=== PATIENT | female | born 1945 | race Caucasian/White ===

== ENCOUNTER 2017-09-10 13:15 | Inpatient (IN) | payer OTHER ==
[~2017-09-10] VITALS: Ht 149.9 cm; Wt 71.0 kg
[~2017-09-10 13:15] MED LIST: ASPIRIN81 M4 PO; CEPHALEXIN500 MG PO; ELIQUIS5 MG PO; HYDROCORTISONE V0.2% TOP; LEVOTHYROXIN0.125 M1 PO; LEVOTHYROXINE125 MCG PO; METHOTREXATE25 MG/M2 SC; MONTELUKAST SOD10 M1 PO; MONTELUKAST SOD10 MG PO; MYCOPHENOLATE500 M1 PO; PREDNISONE 20MG20 MG PO; VITAMIN D50000 IU PO
--- NOTE | 2017-09-10 14:39 | ED GENERAL ADULT ---
History of Present Illness General Chief Complaint: Lower Extremity Injury Stated Complaint: BIBA RT KNEE PAIN S/P FALL Source: patient Exam Limitations: poor historian Vital Signs & Intake/Output Vital Signs & Intake/Output Vital Signs Date Time Temp Pulse Resp B/P B/P Pulse O2 O2 Flow FiO2 Mean Ox Delivery Rate 09/10 1942 99.4 70 20 126/70 97 Room Air 09/10 1839 98.7 72 20 135/67 96 Room Air 09/10 1626 98.1 71 18 139/71 97 Room Air 09/10 1406 98.9 75 18 139/81 98 Room Air Allergies Coded Allergies: lactose (Mild, GI DISTRESS 09/10/17) Reconcile Medications Albuterol Sulfate (Proair Hfa) 90 MCG HFA.AER.AD 2 PUF INH AD PRN RESP. ( Reported) Aspirin (Aspirin*) 81 MG TAB.CHEW 1 TAB PO DAILY HEART HEALTH (Reported) Cholecalciferol (Vitamin D3) (Vitamin D) (Unknown Strength) CAPSULE (Unknown Dose) PO DAILY SUPPLEMENT (Reported) Clobetasol Propionate 0.05 % CREAM..G. 1 IVÁN TOP DAILY SKIN (Reported) apply to affected area(s) Levothyroxine Sodium 125 MCG TABLET 1 TAB PO DAILY THYROID HEALTH (Reported) Montelukast Sodium 10 MG TABLET 1 TAB PO DAILY RESP (Reported) Mycophenolate Mofetil (Cellcept) 500 MG TABLET 1 TAB PO TID MORPHIA (Reported ) Triage Note: 71F BIBA MISSED A STEP AND TWISTED/HYPEREXTENDED R KNEE WITH PAIN TO LATERAL SIDE. DENIES PAIN WITH FLEXION AND MOVEMENT TO HIPS, L KNEE, ANKLES FEEET, WRISTS, ELBOWS, OR SHOULDERS. -HEADSTRIKE -LOC Triage Nurses Notes Reviewed? yes Onset: Abrupt Duration: hour(s): Timing: recent history Severity: severe HPI: 09/10/17 71-year-old female presents to the emergency department for severe right knee pain. She status post slip and fall with strains her right knee. She denies other injuries or complaints. Past History Travel History Traveled to [place] past 21 day No Medical History Any Pertinent Medical History? 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 No Review of Systems Review of Systems Constitutional: Denies: fever. EENTM: Denies: visual changes. Respiratory: Denies: short of breath. Cardiovascular: Denies: chest pain. GI: Denies: abdominal pain. Genitourinary: Reports: no symptoms. Musculoskeletal: Reports: see HPI. Skin: Reports: no symptoms. Neurological/Psychological: Reports: no symptoms. Hematologic/Endocrine: Reports: no symptoms. Physical Exam Physical Exam General Appearance: well developed/nourished, alert, awake, anxious, moderate distress Head: atraumatic, normal appearance Eyes: Bilateral: normal appearance, PERRL, EOMI. Ears, Nose, Throat: normal pharynx, normal ENT inspection Neck: normal inspection, supple, full range of motion Respiratory: normal breath sounds, chest non-tender, no respiratory distress Cardiovascular: regular rate/rhythm Peripheral Pulses: 4+ radial (R), 4+ radial (L) Gastrointestinal: non-tender Extremities: swelling, tenderness Neurologic/Psych: no motor/sensory deficits, awake, alert, oriented x 3 Skin: intact, normal color Comments: The patient had severe right sided inferior and lateral knee pain. Exquisite tenderness on any range of motion. No ligament instability. She was placed in a right knee immobilizer. Right dorsalis pedis pulse was bounding. She had good capillary refill to the toes of the right foot. X-ray showed right tibial plateau fracture. She was admitted to medicine with the plan for operative care on Wednesday. Core Measures ACS in differential dx? No CVA/TIA Diagnosis: No Sepsis Present: No Sepsis Focused Exam Completed? No Progress Differential Diagnoses I considered the following diagnoses in my evaluation of the patient: [Fracture, dislocation, popliteal artery dissection, ligament injury, other occult injuries , DVT,] Plan of Care: Orders Procedure Date/time Status Heart Healthy Diet 09/11 B Active CBC WITHOUT DIFFERENTIAL 09/11 599 Active BASIC ELECTROLYTES PLUS BUN&CR 05/19 0600 Active Turn and Reposition 09/10 2013 Active Skin Integrity Protocol 09/10 2013 Active Device(s) 09/10 194 Active Weight 09/10 192 Active Vital Signs 09/10 1922 Active Teach/Educate 09/10 1922 Active Pain Treatment and Response 09/10 1922 Active Nutritional Intake, Monitor 09/10 1922 Active Isolation 09/10 1922 Active Intake & Output 09/10 1922 Active Patient Care Conference 09/10 1922 Active Activity/Ambulation 09/10 1922 Active Pathway - chart 09/10 1704 Active House Staff 09/10 1704 Active Patient Data 09/10 1704 Active Code Status 09/10 1704 Active Patient Data 09/10 1702 Active ED Holding Orders 09/10 1656 Active Admit to inpatient 09/10 1656 Active Vital Signs 09/10 1656 Active Code Status 09/10 1656 Complete PROTHROMBIN TIME 09/10 1649 Complete COMPREHENSIVE METABOLIC PANEL 09/10 1649 Complete CBC WITHOUT DIFFERENTIAL 09/10 1649 Complete EKG 09/10 1649 Active Intake & Output 09/10 1407 Active VTE Mechanical Prophylaxis 09/10 UNK Active Current Medications Sig/Gila Start time Last Medication Dose Stop Time Status Admin Montelukast Sodium 10 MG AT BEDTIME 09/11 2100 AC (Singulair) Aspirin 81 MG DAILY 09/11 0900 AC (Aspirin) Levothyroxine Sodium 0.125 MG DAILY AC 09/11 0700 AC (Synthroid) Mycophenolate Mofetil 500 MG TID 09/10 2100 AC (CellCept) Acetaminophen 650 MG Q4P PRN 09/10 181 AC (Tylenol) Morphine Sulfate 1 MG Q6P PRN 09/10 181 AC (MORPHINE SULFATE) Oxycodone/ 2 TAB Q4P PRN 09/10 1815 AC Acetaminophen (Percocet) Pantoprazole Sodium 40 MG DAILY 09/10 180 AC (Protonix) Enoxaparin Sodium 40 MG DAILY 09/10 1704 AC 09/10 (Lovenox) 1823 Laboratory Tests 09/10/17 1800: Anion Gap 12, Estimated GFR > 60, BUN/Creatinine Ratio 30.0 H, Glucose 84, Calcium 10.6 H, Total Bilirubin 1.1, AST 29, ALT 30, Alkaline Phosphatase 123, Total Protein 7.1, Albumin 4.4, Globulin 2.7, Albumin/Globulin Ratio 1.6, PT 11.0, INR 1.01, CBC w Diff MAN DIFF ORDERED, RBC 4.97, MCV 82.3, MCH 27.2, MCHC 33.1, RDW 13.4, MPV 8.8, Gran % 86.3 H, Lymphocytes % 8.9 L, Monocytes % 4.3, Eosinophils % 0.4, Basophils % 0.1, Absolute Granulocytes 5.9, Segmented Neutrophils 80 H, Band Neutrophils 6 H, Absolute Lymphocytes 0.6 L, Lymphocytes 10 L, Monocytes 3, Absolute Monocytes 0.3, Eosinophils 1, Absolute Eosinophils 0, Absolute Basophils 0, Platelet Estimate ADEQUATE, Normocytic RBCs VERIFIED, Normochromic RBCs VERIFIED Initial ED EKG: PENDING Departure Departure Disposition: HOME OR SELF CARE Condition: Stable Clinical Impression Primary Impression: Tibial plateau fracture, right Referrals: Patient Has No Primary Care Dr Departure Forms: Customer Survey General Discharge Information Admission Note Spoke With: Aidan AZAR,Dillon Documentation of Exam: Documentation of any treatments & extenuating circumstances including Concerns Regarding Discharge (functional status, medication knowledge or non-compliance, living conditions, etc.) that warrant an admission rather than observation: [ Patient needs admission for IV pain control, she is unable to walk, surgical intervention.] Critical Care Note Critical Care Note Critical Care Time: 30-74 min
--- NOTE | 2017-09-10 15:42 | RADIOLOGY REPORT ---
EXAMINATION: XR KNEE, RIGHT CLINICAL INFORMATION: Pain after a fall COMPARISON: None TECHNIQUE: Four views of the right knee. FINDINGS: There is a lateral tibial plateau fracture with prominent sagittally oriented component extending from the tibial spine to the lateral tibial metaphysis. There is 4-5 mm of articular surface depression anteriorly. Large lipohemarthrosis. IMPRESSION: Depressed lateral tibial plateau fracture with large lipohemarthrosis.
--- NOTE | 2017-09-10 15:43 | RADIOLOGY REPORT ---
EXAMINATION: XR HIP, RIGHT CLINICAL INFORMATION: Right hip pain after a fall COMPARISON: None TECHNIQUE: Two views of the right hip. FINDINGS: Normal alignment. No fracture. Mild right hip osteoarthritis. No focal osseous lesion. IMPRESSION: No fracture.
--- NOTE | 2017-09-10 17:07 | History & Physical ---
General Information and HPI Allergies/Medications Allergies: Coded Allergies: lactose (Mild, GI DISTRESS 09/10/17) Home Med list Aspirin (Aspirin*) 81 MG TAB.CHEW 1 TAB PO DAILY HEART HEALTH (Reported) Levothyroxine Sodium 125 MCG TABLET 1 TAB PO DAILY THYROID HEALTH (Reported) Montelukast Sodium 10 MG TABLET 1 TAB PO DAILY BREATHING PROBLEMS (Reported) Mycophenolate Mofetil 500 MG TABLET 2 TAB PO BID ANTIBIOTIC, INFECTION ( Reported) Past History Travel History Traveled to [place] past 21 day No Medical History Neurological: NONE EENT: MORPHIA SCLERODERMA Cardiovascular: AFIB, hyperlipidemia Respiratory: asthma Gastrointestinal: NONE Hepatic: NONE Renal: NONE Musculoskeletal: NONE Psychiatric: NONE Endocrine: hypothyroidism Blood Disorders: NONE 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 spouse Services at Home: None Primary Language: [facility] Living Will? no Power of Sole Splitter/HCP? yes Name of POA/HCP: MARIE Functional Ability ADLs Independent: dressing, eating, toileting, bathing. Ambulation: independent IADLs Independent: shopping, housework, finances, food prep, telephone, transportation , medication admin. Exam & Diagnostic Data Last 24 Hrs of Vital Signs/I&O Vital Signs Date Time Temp Pulse Resp B/P B/P Pulse O2 O2 Flow FiO2 Mean Ox Delivery Rate 09/10 1626 98.1 71 18 139/71 97 Room Air 09/10 1406 98.9 75 18 139/81 98 Room Air Intake & Output 09/10 1600 09/10 0800 09/10 0000 Intake Total Output Total Balance Patient 123 lb Weight Diagnostic Data Other Results XR HIP, RIGHT FINDINGS: Normal alignment. No fracture. Mild right hip osteoarthritis. No focal osseous lesion. IMPRESSION: No fracture. XR KNEE, RIGHT FINDINGS: There is a lateral tibial plateau fracture with prominent sagittally oriented component extending from the tibial spine to the lateral tibial metaphysis. There is 4-5 mm of articular surface depression anteriorly. Large lipohemarthrosis. IMPRESSION: Depressed lateral tibial plateau fracture with large lipohemarthrosis. Assessment/Plan As Ranked By This Provider Problem List: 1. Tibial plateau fracture, right Core Measures/Misc (01/10) Acute Coronary Syndrome ACS Diagnosis: No Congestive Heart Failure Congestive Heart Failure Diagnosis No Cerebrovascular Accident CVA/TIA Diagnosis: No VTE (View Protocol) VTE Risk Factors Age>40 Sepsis (View protocol) Sepsis Present: No CVA/TIA Diagnosis: No VTE (View Protocol) VTE Risk Factors Age>40 Sepsis (View protocol) Sepsis Present: No
--- NOTE | 2017-09-10 17:09 | History & Physical ---
Luis Carlos Calvo 09/10/17 1708: General Information and HPI History of Present Illness: Mr. Jara is a Ukrainian speaking 68-year-old woman with past medical history of AFIB, morphea scleroderma, hyperlipidemia, asthma and hypothyroidism who presents to the ED with right knee pain after a fall. Son at bedside. Patient reports this morning she was walking down garage steps that does not have any railing while carrying a bag in her hand. As she was going down the steps she missed a step and fell towards her right side. She yelled out for her son who was in the house with her but a neighbor was first to respond who found her on the ground without LOC. She stayed on the ground until the paramedics came. She performs her own ADLs and is able to walk up and down a flight of steps without SOB. She denies lightheadedness, history of falls, CP, SOB, palpitations, nausea, vomiting, urinary or bowel symptoms. In the ED the patient remained stable, Dr. Miller was contacted who reports her surgery will be scheduled for Wednesday due to a special hardware that needs to be ordered. Allergies/Medications Allergies: Coded Allergies: lactose (Mild, GI DISTRESS 09/10/17) Home Med list Albuterol Sulfate (Proair Hfa) 90 MCG HFA.AER.AD 2 PUF INH AD PRN RESP. ( Reported) Aspirin (Aspirin*) 81 MG TAB.CHEW 1 TAB PO DAILY HEART HEALTH (Reported) Cholecalciferol (Vitamin D3) (Vitamin D) (Unknown Strength) CAPSULE (Unknown Dose) PO DAILY SUPPLEMENT (Reported) Clobetasol Propionate 0.05 % CREAM..G. 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 spouse Services at Home: None Primary Language: portguese Living Will? 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 Ambulation: independent IADLs Independent: shopping, housework, finances, food prep, telephone, transportation , medication admin. Review of Systems Review of Systems Constitutional: Reports: see HPI. Exam & Diagnostic Data Last 24 Hrs of Vital Signs/I&O Vital Signs Date Time Temp Pulse Resp B/P B/P Pulse O2 O2 Flow FiO2 Mean Ox Delivery Rate 09/10 1626 98.1 71 18 139/71 97 Room Air 09/10 1406 98.9 75 18 139/81 98 Room Air Intake & Output 09/10 1600 09/10 0800 09/10 0000 Intake Total Output Total Balance Patient 123 lb Weight Physical Exam General Appearance Alert, Oriented X3, Cooperative, No Acute Distress Skin Fibrotic lesions throughout body HEENT Atraumatic, PERRLA, EOMI, Mucous Membr. moist/pink Cardiovascular Regular Rate, Normal S1, Normal S2 Lungs Clear to Auscultation, Normal Air Movement Abdomen Normal Bowel Sounds, Soft, No Tenderness Extremities R knee swelling and tenderness. No ecchymoses visualized Last 24 Hrs of Labs/Loki: Laboratory Tests 09/10/17 1800: Sodium Pending, Potassium Pending, Chloride Pending, Carbon Dioxide Pending, Anion Gap Pending, BUN Pending, Creatinine Pending, BUN/Creatinine Ratio Pending , Glucose Pending, Calcium Pending, Total Bilirubin Pending, AST Pending, ALT Pending, Alkaline Phosphatase Pending, Total Protein Pending, Albumin Pending, Globulin Pending, Albumin/Globulin Ratio Pending, PT 11.0, INR 1.01, CBC w Diff MAN DIFF ORDERED, RBC 4.97, MCV 82.3, MCH 27.2, MCHC 33.1, RDW 13.4, MPV 8.8, Gran % 86.3 H, Lymphocytes % 8.9 L, Monocytes % 4.3, Eosinophils % 0.4, Basophils % 0.1, Absolute Granulocytes 5.9, Segmented Neutrophils Pending, Absolute Lymphocytes 0.6 L, Absolute Monocytes 0.3, Absolute Eosinophils 0, Absolute Basophils 0 Diagnostic Data EKG Results SR, HR 74, QTc 426 Other Results XR HIP, RIGHT FINDINGS: Normal alignment. No fracture. Mild right hip osteoarthritis. No focal osseous lesion. IMPRESSION: No fracture. XR KNEE, RIGHT FINDINGS: There is a lateral tibial plateau fracture with prominent sagittally oriented component extending from the tibial spine to the lateral tibial metaphysis. There is 4-5 mm of articular surface depression anteriorly. Large lipohemarthrosis. IMPRESSION: Depressed lateral tibial plateau fracture with large lipohemarthrosis. Assessment/Plan Assessment: Mr. Jara is a Ukrainian speaking 68-year-old woman with past medical history of AFIB, morphea scleroderma, hyperlipidemia, asthma and hypothyroidism who presents to the ED with right knee pain after a fall. Problem list: #Mechanical fall #Lateral tibial plateau fracture Plan: Admit to general medical floor for further evaluation and management Resume home meds: ASA, levothyroxine, mycophenolate, Montelukast, clobetasol Pain: Acetaminophen, morphine, acetaminophen/oxycodone IV Protonix daily Orthopedic consult Diet: Heart healthy DVT ppx: Enoxaparin Code: Full As Ranked By This Provider Problem List: 1. Tibial plateau fracture, right Core Measures/Misc (01/10) Acute Coronary Syndrome ACS Diagnosis: No Congestive Heart Failure Congestive Heart Failure Diagnosis No Cerebrovascular Accident CVA/TIA Diagnosis: No VTE (View Protocol) VTE Risk Factors Age>40 No Mechanical VTE Prophylaxis d/t N/A MechProphylax Ordered No VTE Pharm Prophylaxis d/t NA PharmProphylax ordered Sepsis (View protocol) Sepsis Present: No Ihsan Rose MD 09/10/17 1712: General Information and HPI MD Statement: I have seen and personally examined JOHN JARA and documented this H&P. The patient is a 71 year old F who presented with a patient stated chief complaint of [right knee pain and fall]. Source of Information: patient, family Exam Limitations: no limitations Core Measures/Misc (01/10) VTE (View Protocol) No Mechanical VTE Prophylaxis d/t Medical Contraindication (patient had fracture knee) Resident Review Statement Resident Statement: examined this patient, discussed with leadership program internship, agreed with leadership program internship, discussed with family Other Findings: Patient is a 71-year-old, Ukrainian speaking female BIBA secondary to fall. She had past medical history of hyperlipidemia, morphea, asthma, hypothyroidism. Most of the history taken from the son at the bedside. According to the patient in the morning she was walking downstairs towards her garage. She missed a step and fell towards the right side. She denies for any headache, dizziness, loss of consciousness. She was not able to get up from the floor and called her son who called the ambulance. At her baseline she is able to do on her daily activity without any difficulty. Vital signs at the time of admission -temperature 98.9, pulse 75, respiratory 18 , pressure 139/81, SPO2 98% on room air Physical examination -patient was conscious, cooperative, able to answer most of the question. Right lower extremity there was swelling on the right upper quadrant of the knee, movement at the right knee most painful, on palpation there was tenderness. She was able to move left leg, foot without any difficulty. Blood workup -hemoglobin 13.5, hematocrit 41.0, platelet count 180, sodium 143, potassium 4.2, chloride 105, carbon dioxide 27, anion gap 12, BUN 12, creatinine 0.4, glucose 84, calcium 10.6, total bilirubin 1.1, AST 29, ALT 30, alkaline phosphatase [address] scan -Impacted lateral tibial plateau fracture, and a hairline fracture of the fibular head extending along the tibiofibular joint. Large lipohemarthrosis. Hip and knee x-ray - Depressed lateral tibial plateau fracture with large lipohemarthrosis. No any fracture. Assessment and plan - Impacted lateral tibial plateau fracture - * Acute pain management -pain medication according to the pain scale * Preop clearance -RCRI score (0.4%) * Followup with Dr. Miller, in the ED Dr. Miller was contacted,scheduled surgery on Wednesday because patient may need a special hardware which was ordered. Extensive Morphia - Patient was having skin lesions of morphea all over her body. She is undergoing treatment at heel. She is applying topical clobetasol propionate and systemic tablet mycophenolate mofetil 500 mg p.o. 3 times daily. We will continue it. 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 No symptoms prior to or after fall; slipped and fell. Typically active, no cardiac history, no chest pain or dyspnea on exertion. Will admit to medicine, orthopedic consult, pre-operative evaluation, pain control, DVT PPx
--- NOTE | 2017-09-10 17:41 | CT SCAN REPORT ---
EXAMINATION: CT LOWER EXTREMITY WITHOUT CONTRAST, RIGHT CLINICAL INFORMATION: Right tibial plateau fracture. COMPARISON: Same day radiographs. TECHNIQUE: A noncontrast CT of the right knee is performed with sagittal and coronal reformats. DLP: 342 mGy-cm FINDINGS: There is an impaction fracture of the lateral tibial plateau with multiple fracture lines and depression of the articular surface of approximately 7 mm. There is a large lipohemarthrosis. There are hairline fractures extending posteriorly along the tibial spines and there is a sagittally oriented fracture line extending to the anterior cortex, lateral to the tibial tubercle. A coronal oblique fracture line extends posterolaterally, along the tibiofibular joint. There is also a hairline fracture of the fibular head which also extends along the tibiofibular joint. IMPRESSION: Impacted lateral tibial plateau fracture as described, and a hairline fracture of the fibular head extending along the tibiofibular joint. Large lipohemarthrosis.
[2017-09-10 18:15] LABS: ABSOLUTE BASOPHIL COUNT 0 /CUMM (0.0-0.2); ABSOLUTE EOSINOPHIL COUNT 0 /CUMM (0.0-0.7); ABSOLUTE GRANULOCYTE CT 5.9 /CUMM (1.4-6.5); ABSOLUTE LYMPH COUNT 0.6 /CUMM (1.2-3.4); ABSOLUTE MONOCYTE COUNT 0.3 /CUMM (0.10-0.60); BASOPHIL % 0.1 % (0.0-2.0); EOSINOPHIL % 0.4 % (0-5); GRANULOCYTE % 86.3 % (42.2-75.2); MEAN CORPUSCULAR HGB 27.2 PG (27.0-31.0); MEAN CORPUSCULAR HGB CONC 33.1 G/DL (33.0-37.0); MEAN CORPUSCULAR VOLUME 82.3 FL (81.0-99.0); MEAN PLATELET VOLUME 8.8 FL (7.4-10.4); PLATELET COUNT 180 /CUMM (130-400); RBC DISTRIBUTION WIDTH 13.4 % (11.5-14.5); RED BLOOD CELL CT 4.97 /CUMM (4.20-5.40); WHITE BLOOD CELL COUNT 6.8 /CUMM (4.8-10.8)
[2017-09-10] MEDS ORDERED: CELLCEPT500 M2 PO (18:22)
[2017-09-10] MEDS ORDERED: VITAMIN D2000 UNIT PO (18:23)
[2017-09-10] MEDS ORDERED: PROAIR HFA8.5 GM INH (18:23)
[2017-09-10] MEDS ORDERED: CLOBETASOL PROP15 GM TOP (18:23)
[2017-09-10 19:43] VITALS: BP 126/70
[2017-09-10 22:22] VITALS: BP 120/60
[2017-09-11 06:20] VITALS: BP 114/60
--- NOTE | 2017-09-11 07:38 | PN- Housestaff ---
See Addendum Subjective Follow-up For: #Lateral tibial plateau fracture s/p fall Subjective: Patient reports mild knee pain 3/10 in severity. She denies SOB, CP, nausea, vomiting, CORTEZ Review of Systems Constitutional: Reports: see HPI. Objective Last 24 Hrs of Vital Signs/I&O Vital Signs Date Time Temp Pulse Resp B/P B/P Pulse O2 O2 Flow FiO2 Mean Ox Delivery Rate 09/11 0620 99.0 67 18 114/60 96 Room Air 09/10 2222 98.1 66 20 120/60 96 09/10 1943 99.4 70 20 126/70 97 Room Air 09/10 1839 98.7 72 20 135/67 96 Room Air 09/10 1626 98.1 71 18 139/71 97 Room Air 09/10 1406 98.9 75 18 139/81 98 Room Air Intake & Output 09/11 0800 09/11 0000 09/10 1600 Intake Total 460 700 Output Total 350 300 Balance 110 400 Intake, Oral 460 700 Number 0 Bowel Movements Output, Urine 350 300 Patient 123 lb 123 lb Weight Physical Exam General Appearance: Alert, Oriented X3, Cooperative, No Acute Distress Cardiovascular: Regular Rate, Normal S1, Normal S2 Lungs: Clear to Auscultation, Normal Air Movement Abdomen: Normal Bowel Sounds, Soft, No Tenderness Extremities: R knee swelling without ecchymoses. Cast applied Current Medications: Current Medications Sig/Gila Start time Last Medication Dose Route Stop Time Status Admin Acetaminophen 0 .STK-MED ONE 09/10 1818 DC PO Acetaminophen 650 MG Q4P PRN 09/10 1814 AC 09/11 PO 0433 Acetaminophen 650 MG ONCE ONE 09/10 181 DC 09/10 PO 09/10 181 1824 Acetaminophen 650 MG ONCE ONE 09/10 1415 DC 09/10 PO 09/10 1416 1406 Aspirin 81 MG DAILY 09/11 0900 AC PO Enoxaparin Sodium 0 .STK-MED ONE 09/10 1818 DC SC Enoxaparin Sodium 40 MG DAILY 09/10 1704 AC 09/10 SC 1823 Levothyroxine Sodium 0.125 MG DAILY AC 09/11 0700 AC 09/11 PO 0517 Montelukast Sodium 10 MG AT BEDTIME 09/11 2100 AC PO Morphine Sulfate 1 MG Q6P PRN 09/10 1814 AC IV Mycophenolate Mofetil 500 MG TID 09/10 2100 AC 09/10 PO 2135 Oxycodone/ 2 TAB Q4P PRN 09/10 1814 AC Acetaminophen PO Pantoprazole Sodium 40 MG DAILY 09/11 1803 AC IV Last 24 Hrs of Lab/Loki Results Last 24 Hrs of Labs/Mics: Laboratory Tests 09/10/17 1800: Anion Gap 12, Estimated GFR > 60, BUN/Creatinine Ratio 30.0 H, Glucose 84, Calcium 10.6 H, Total Bilirubin 1.1, AST 29, ALT 30, Alkaline Phosphatase 123, Total Protein 7.1, Albumin 4.4, Globulin 2.7, Albumin/Globulin Ratio 1.6, PT 11.0, INR 1.01, CBC w Diff MAN DIFF ORDERED, RBC 4.97, MCV 82.3, MCH 27.2, MCHC 33.1, RDW 13.4, MPV 8.8, Gran % 86.3 H, Lymphocytes % 8.9 L, Monocytes % 4.3, Eosinophils % 0.4, Basophils % 0.1, Absolute Granulocytes 5.9, Segmented Neutrophils 80 H, Band Neutrophils 6 H, Absolute Lymphocytes 0.6 L, Lymphocytes 10 L, Monocytes 3, Absolute Monocytes 0.3, Eosinophils 1, Absolute Eosinophils 0, Absolute Basophils 0, Platelet Estimate ADEQUATE, Normocytic RBCs VERIFIED, Normochromic RBCs VERIFIED Assessment/Plan Assessment: Mr. Dobbins is a Turkmen speaking 68-year-old woman with past medical history of AFIB not on anticoagulation or rate control, morphea scleroderma, hyperlipidemia, asthma and hypothyroidism who presents to the ED with right knee pain after a fall. Problem list: #Mechanical fall #Lateral tibial plateau fracture Plan: Continue ASA, levothyroxine, mycophenolate, Montelukast, clobetasol Continue pain meds Acetaminophen, morphine, acetaminophen/oxycodone IV Protonix daily Appreciate Orthopedic recommendations (As per ED patient is scheduled to go to surg Wednesday pending special hardware order) Diet: Heart healthy DVT ppx: Enoxaparin Code: Full Problem List: 1. Tibial plateau fracture, right Pain Ratin Pain Location: R knee Pain Goal: Remain pain free Pain Plan: Acetaminophen, morphine, acetaminophen/oxycodone Tomorrow's Labs & Rationales: CBC, BEP
[2017-09-11 08:49] LABS: ABSOLUTE BASOPHIL COUNT 0 /CUMM (0.0-0.2); ABSOLUTE EOSINOPHIL COUNT 0.1 /CUMM (0.0-0.7); ABSOLUTE GRANULOCYTE CT 4.7 /CUMM (1.4-6.5); ABSOLUTE LYMPH COUNT 0.6 /CUMM (1.2-3.4); ABSOLUTE MONOCYTE COUNT 0.3 /CUMM (0.10-0.60); BASOPHIL % 0.1 % (0.0-2.0); EOSINOPHIL % 1.6 % (0-5); GRANULOCYTE % 82.2 % (42.2-75.2); HEMATOCRIT 39.2 % (37-47); MEAN CORPUSCULAR HGB 27.5 PG (27.0-31.0); MEAN CORPUSCULAR HGB CONC 33.4 G/DL (33.0-37.0); MEAN CORPUSCULAR VOLUME 82.4 FL (81.0-99.0); MEAN PLATELET VOLUME 8.7 FL (7.4-10.4); PLATELET COUNT 170 /CUMM (130-400); RED BLOOD CELL CT 4.75 /CUMM (4.20-5.40); WHITE BLOOD CELL COUNT 5.8 /CUMM (4.8-10.8)
--- NOTE | 2017-09-11 11:02 | Cons- Orthopedic ---
General Information and HPI Consulting Request Date of Consult: 09/11/17 Requested By: Dillon Bermudez MD Reason for Consult: Right knee tibial plateau fracture. Source of Information: patient, family Exam Limitations: no limitations History of Present Illness: The patient is a very pleasant 71-year-old active female who tripped while descending several stairs outside of her house. She was unable to get up from the ground. I believe a neighbor eventually found her. She was brought to the [facility] emergency room for evaluation with complaints of right lower extremity pain. X-rays of the patient's right knee showed a comminuted depressed lateral tibial plateau fracture. There is no known antecedent history of lightheadedness or shortness of breath or chest pain or dizziness. There was no loss of consciousness with the fall itself. No other obvious injury sustained with the fall itself. The patient's right knee was placed into a knee immobilizer and she was admitted to the medical service with a "geriatric fracture" for medical stabilization and optimization in anticipation of performing an ORIF of the right knee lateral tibial plateau fracture. Allergies/Medications Allergies: Coded Allergies: lactose (Mild, GI DISTRESS 09/10/17) Home Med List: Albuterol Sulfate (Proair Hfa) 90 MCG HFA.AER.AD 2 PUF INH AD PRN RESP. ( Reported) Aspirin (Aspirin*) 81 MG TAB.CHEW 1 TAB PO DAILY HEART HEALTH (Reported) Cholecalciferol (Vitamin D3) (Vitamin D) (Unknown Strength) CAPSULE (Unknown Dose) PO DAILY SUPPLEMENT (Reported) Clobetasol Propionate 0.05 % CREAM..G. 1 IVÁN TOP DAILY SKIN (Reported) apply to affected area(s) Levothyroxine Sodium 125 MCG TABLET 1 TAB PO DAILY THYROID HEALTH (Reported) Montelukast Sodium 10 MG TABLET 1 TAB PO DAILY RESP (Reported) Mycophenolate Mofetil (Cellcept) 500 MG TABLET 1 TAB PO TID MORPHIA (Reported ) Current Medications: Current Medications Sig/Gila Start time Last Medication Dose Route Stop Time Status Admin Acetaminophen 0 .STK-MED ONE 09/10 1818 DC PO Acetaminophen 650 MG Q4P PRN 09/10 1814 AC 09/11 PO 0433 Acetaminophen 650 MG ONCE ONE 09/10 1815 DC 09/10 PO 09/11 1815 1824 Acetaminophen 650 MG ONCE ONE 09/10 1415 DC 09/10 PO 09/10 1416 1406 Aspirin 81 MG DAILY 09/11 0900 AC 09/11 PO 0931 Clobetasol Propionate 1 IVÁN DAILY 09/11 0900 AC 09/11 TOP 0940 Enoxaparin Sodium 0 .STK-MED ONE 09/10 1819 DC SC Enoxaparin Sodium 40 MG DAILY 09/10 1704 AC 09/11 SC 0937 Levothyroxine Sodium 0.125 MG DAILY AC 09/11 0700 AC 09/11 PO 0517 Montelukast Sodium 10 MG AT BEDTIME 09/11 2100 AC PO Morphine Sulfate 1 MG Q6P PRN 09/10 181 AC IV Mycophenolate Mofetil 500 MG TID 09/10 2100 AC 09/10 PO 2136 Oxycodone/ 2 TAB Q4P PRN 09/10 181 AC Acetaminophen PO Pantoprazole Sodium 40 MG DAILY 09/10 180 AC IV Past History Medical History Neurological: NONE EENT: MORPHIA SCLERODERMA Cardiovascular: AFIB, hyperlipidemia Respiratory: asthma Gastrointestinal: NONE Hepatic: NONE Renal: NONE Musculoskeletal: NONE Psychiatric: NONE Endocrine: hypothyroidism Blood Disorders: NONE Cancer(s): NONE TRUSTEE 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 Home Who Do You Live With? spouse Services at Home: None Primary Language: [facility] Smoking Status: Never Smoked Living Will? no Power of Pricing Coordinator/HCP? yes Name of POA/HCP: MARIE Functional Ability ADLs Independent: dressing, eating, toileting, bathing. Ambulation: independent IADLs Independent: shopping, housework, finances, food prep, telephone, transportation , medication admin. Exam & Diagnostic Data Vital Signs and I&O Vital Signs Date Time Temp Pulse Resp B/P B/P Pulse O2 O2 Flow FiO2 Mean Ox Delivery Rate 09/11 0620 99.0 67 18 114/60 96 Room Air 09/10 2222 98.1 66 20 120/60 96 09/10 1943 99.4 70 20 126/70 97 Room Air 09/10 1839 98.7 72 20 135/67 96 Room Air 09/10 1626 98.1 71 18 139/71 97 Room Air 09/10 1406 98.9 75 18 139/81 98 Room Air Intake & Output 09/11 1600 09/11 0800 09/11 0000 09/10 1600 09/10 0800 09/10 0000 Intake Total 460 700 Output Total 350 300 Balance 110 400 Intake, Oral 460 700 Number 0 Bowel Movements Output, Urine 350 300 Patient 123 lb 123 lb Weight Physical Exam: The patient is a pleasant, cooperative, well-nourished well-developed healthy- appearing white female lying comfortably in bed in no apparent distress. She is awake and alert and oriented 3. Speech is normal. Affect is appropriate. Vital signs are stable and she is afebrile. Gait is not assessed today due to the patient's right knee lateral tibial plateau fracture. The right lower extremity is immobilized in extension in a long-leg knee immobilizer. There are diffuse patchy skin pigmentation changes with change of texture of the skin due to morphea. There is moderate swelling about the right knee. There is mild tenderness to palpation about the right knee. Motion of the right knee is not tested. Motor and sensory function to the bilateral lower extremities is grossly intact to the feet. DP and PT pulses 1+ bilaterally. Capillary refill in the toes is brisk bilaterally. Last 24 Hours of Labs: Laboratory Tests 09/11 09/10 0730 1800 Chemistry Sodium (137 - 145 mmol/L) 141 143 Potassium (3.5 - 5.1 mmol/L) 4.3 4.2 Chloride (98 - 107 mmol/L) 103 105 Carbon Dioxide (22 - 30 mmol/L) 26 27 Anion Gap (5 - 16) 12 12 BUN (7 - 17 mg/dL) 10 12 Creatinine (0.5 - 1.0 mg/dL) 0.5 0.4 L Estimated GFR (>60 ml/min) > 60 > 60 BUN/Creatinine Ratio (7 - 25 %) 20.0 30.0 H Glucose (65 - 99 mg/dL) 84 Calcium (8.4 - 10.2 mg/dL) 10.6 H Total Bilirubin (0.2 - 1.3 mg/dL) 1.1 AST (14 - 36 U/L) 29 ALT (9 - 52 U/L) 30 Alkaline Phosphatase (<127 U/L) 123 Total Protein (6.3 - 8.2 g/dL) 7.1 Albumin (3.5 - 5.0 g/dL) 4.4 Globulin (1.9 - 4.2 gm/dL) 2.7 Albumin/Globulin Ratio (1.1 - 2.2 %) 1.6 Coagulation PT (9.4 - 12.5 SEC) 11.0 INR (0.90 - 1.19) 1.01 Hematology CBC w Diff NO MAN DIFF REQ MAN DIFF ORDERED WBC (4.8 - 10.8 /CUMM) 5.8 6.8 RBC (4.20 - 5.40 /CUMM) 4.75 4.97 Hgb (12.0 - 16.0 G/DL) 13.1 13.5 Hct (37 - 47 %) 39.2 41.0 MCV (81.0 - 99.0 FL) 82.4 82.3 MCH (27.0 - 31.0 PG) 27.5 27.2 MCHC (33.0 - 37.0 G/DL) 33.4 33.1 RDW (11.5 - 14.5 %) 13.0 13.4 Plt Count (130 - 400 /CUMM) 170 180 MPV (7.4 - 10.4 FL) 8.7 8.8 Gran % (42.2 - 75.2 %) 82.2 H 86.3 H Lymphocytes % (20.5 - 51.1 %) 10.4 L 8.9 L Monocytes % (1.7 - 9.3 %) 5.7 4.3 Eosinophils % (0 - 5 %) 1.6 0.4 Basophils % (0.0 - 2.0 %) 0.1 0.1 Absolute Granulocytes (1.4 - 6.5 /CUMM) 4.7 5.9 Segmented Neutrophils (42.2 - 75.2 %) 80 H Band Neutrophils (0.0 - 5.0 %) 6 H Absolute Lymphocytes (1.2 - 3.4 /CUMM) 0.6 L 0.6 L Lymphocytes (20.5 - 51.1 %) 10 L Monocytes (1.7 - 9.3 %) 3 Absolute Monocytes (0.10 - 0.60 /CUMM) 0.3 0.3 Eosinophils (0 - 5.0 %) 1 Absolute Eosinophils (0.0 - 0.7 /CUMM) 0.1 0 Absolute Basophils (0.0 - 0.2 /CUMM) 0 0 Platelet Estimate (ADEQUATE) ADEQUATE Normocytic RBCs VERIFIED Normochromic RBCs VERIFIED Imaging Results: X-rays of the patient's right knee show a comminuted depressed lateral tibial plateau fracture. Follow-up CT scan of the right knee confirms the same giving better definition to the actual fracture fragments and fracture lines. A lipohemarthrosis is identified at the knee on CT scan. Assessment/Plan Assessment/Plan Assessment: 71-year-old very active female status post trip and fall down several stairs resulting in a right knee comminuted, depressed lateral tibial plateau fracture. Plan: The patient was seen and examined with her family members at her bedside to help with translation. We did discuss the nature of her tibial plateau fracture as well as the risks and benefits and expected outcomes of nonoperative management of the fracture versus that of operative intervention. With respect to nonoperative management we did discuss that she would be healing with deformity and potential instability of the knee which would be expected to give several problems in the future including instability of the knee which may require bracing and a higher chance of progressive rapid development of post traumatic arthritis of the knee as well complicating future potential total knee arthroplasty if needed. With respect to surgery we did discuss formal ORIF with a lateral buttress plate and screws and bone grafting for support and to help with healing. All of the patient's questions and her family's questions were answered at length. After discussion of the above the patient and the family did agree that we would move forward with ORIF of the right knee lateral tibial plateau fracture with bone grafting as is recommended. As of now surgery is tentatively planned for Wednesday. In the meantime we will work on getting appropriate instrumentation and implants and grafting material available for the case. For now she will remain nonweightbearing on the right lower extremity. Ice packs can be applied to the right knee. The right knee should remain immobilized in a knee immobilizer. If anticoagulant medication is started it absolutely needs to be discontinued by midnight on the day of surgery prior to surgery. The patient should also be NPO after midnight on the evening leading up to her surgery. Problem List: 1. Tibial plateau fracture, right Consult Acknowledgment - Thank you for your consult request. Attending Review Statement Attending Statement Attending Statement: examined this patient, discussed with family, reviewed EMR data (avail), reviewed images
[2017-09-11 14:23] VITALS: BP 120/64
--- NOTE | 2017-09-11 16:42 | RADIOLOGY REPORT ---
EXAMINATION: CHEST 1 VIEW CLINICAL INFORMATION: Preop. COMPARISON: 02/19/2017. TECHNIQUE: An AP view of the chest is provided. FINDINGS: The cardiac silhouette is stable. The mediastinal and hilar contours are unremarkable. There are neither pleural effusions nor pneumothoraces. There are no consolidations. The osseous structures are stable with evidence of prior right shoulder surgery. IMPRESSION: No evidence for acute disease.
[2017-09-11 22:47] VITALS: BP 124/82
[2017-09-12 06:22] VITALS: BP 120/66
--- NOTE | 2017-09-12 08:17 | PN- Housestaff ---
See Addendum Subjective Follow-up For: #Lateral tibial plateau fracture s/p fall Subjective: Patient seen and examined at bedside. No overnight events. Denies pain in her right foot. Patient complains of dull right flank pain while turning. Patient is aware that she is going for surgery on Wednesday. Review of Systems Constitutional: Reports: no symptoms, see HPI. Objective Last 24 Hrs of Vital Signs/I&O Vital Signs Date Time Temp Pulse Resp B/P B/P Pulse O2 O2 Flow FiO2 Mean Ox Delivery Rate 09/12 0622 98.8 64 16 120/66 97 Room Air 09/11 2247 99.0 72 16 124/82 96 Room Air 09/11 1423 100.2 76 20 120/64 98 Intake & Output 09/12 1600 09/12 0800 09/12 0000 Intake Total 300 200 Output Total 400 Balance -100 200 Intake, Oral 300 200 Output, Urine 400 Physical Exam General Appearance: Alert, Oriented X3, Cooperative, No Acute Distress Cardiovascular: Regular Rate, Normal S1, Normal S2, No Murmurs Lungs: Normal Air Movement Abdomen: Soft, No Tenderness, No Hepatospenomegaly, No Masses Neurological: Normal Speech, Strength at 5/5 X4 Ext, Normal Tone, Sensation Intact Current Medications: Current Medications Sig/Gila Start time Last Medication Dose Route Stop Time Status Admin Acetaminophen 650 MG Q4P PRN 09/10 181 AC 09/12 PO 0934 Aspirin 81 MG DAILY 09/11 0900 AC 09/12 PO 0934 Clobetasol Propionate 1 IVÁN DAILY 09/11 0900 AC 09/12 TOP 0938 Enoxaparin Sodium 40 MG DAILY 09/10 1704 AC 09/12 SC 0934 Levothyroxine Sodium 0.125 MG DAILY AC 09/11 0700 AC 09/12 PO 0518 Montelukast Sodium 10 MG AT BEDTIME 09/11 2100 AC 09/11 PO 2012 Morphine Sulfate 1 MG Q6P PRN 09/10 181 AC IV Mycophenolate Mofetil 500 MG TID 09/10 2100 AC 09/12 PO 0938 Oxycodone/ 2 TAB Q4P PRN 09/10 181 AC Acetaminophen PO Pantoprazole Sodium 40 MG DAILY 09/10 1804 AC IV Last 24 Hrs of Lab/Loki Results Last 24 Hrs of Labs/Mics: Laboratory Tests 05/20/18 0650: Anion Gap 11, Estimated GFR > 60, BUN/Creatinine Ratio 30.0 H, CBC w Diff NO MAN DIFF REQ, RBC 5.00, MCV 82.1, MCH 27.1, MCHC 33.0, RDW 12.9, MPV 8.6, Gran % 75.0, Lymphocytes % 14.7 L, Monocytes % 8.1, Eosinophils % 2.0, Basophils % 0.2 , Absolute Granulocytes 3.8, Absolute Lymphocytes 0.8 L, Absolute Monocytes 0.4 , Absolute Eosinophils 0.1, Absolute Basophils 0 09/12/17 0500: Urine Color YEL, Urine Clarity CLEAR, Urine pH 6.0, Ur Specific [place] 1.020, Urine Protein NEG, Urine Ketones NEG, Urine Nitrite NEG, Urine Bilirubin NEG, Urine Urobilinogen 0.2, Ur Leukocyte Esterase NEG, Ur Microscopic EXAM NOT REQUIRED, Urine Hemoglobin NEG, Urine Glucose NEG Assessment/Plan Assessment: Mr. Dobbins is a Lithuanian speaking 68-year-old woman with past medical history of AFIB not on anticoagulation or rate control, morphea scleroderma, hyperlipidemia, asthma and hypothyroidism who presents to the ED with right knee pain after a fall. Problem list: #Mechanical fall #Lateral tibial plateau fracture Plan: Patient planned for surgery ORIF of the right knee with bone grafting On Wednesday. Patient will be nonweightbearing of the right lower extremity. Anticoagulant should be discontinued on Wednesday night. Continue ASA, levothyroxine, mycophenolate, Montelukast, clobetasol Continue pain meds Acetaminophen, morphine, acetaminophen/oxycodone IV Protonix daily Diet: Heart healthy DVT ppx: Enoxaparin Code: Full Problem List: 1. Tibial plateau fracture, right Pain Ratin Pain Location: none Pain Goal: Remain pain free Pain Plan: tylenol Tomorrow's Labs & Rationales: none
[2017-09-12 08:25] LABS: ABSOLUTE BASOPHIL COUNT 0 /CUMM (0.0-0.2); ABSOLUTE EOSINOPHIL COUNT 0.1 /CUMM (0.0-0.7); ABSOLUTE GRANULOCYTE CT 3.8 /CUMM (1.4-6.5); ABSOLUTE LYMPH COUNT 0.8 /CUMM (1.2-3.4); ABSOLUTE MONOCYTE COUNT 0.4 /CUMM (0.10-0.60); BASOPHIL % 0.2 % (0.0-2.0); MEAN CORPUSCULAR HGB 27.1 PG (27.0-31.0); MEAN CORPUSCULAR VOLUME 82.1 FL (81.0-99.0); MEAN PLATELET VOLUME 8.6 FL (7.4-10.4); PLATELET COUNT 177 /CUMM (130-400); RBC DISTRIBUTION WIDTH 12.9 % (11.5-14.5); WHITE BLOOD CELL COUNT 5.1 /CUMM (4.8-10.8)
[2017-09-12 14:50] VITALS: BP 124/70
[2017-09-12 22:06] VITALS: BP 116/70
[2017-09-13 06:20] VITALS: BP 134/80
--- NOTE | 2017-09-13 07:57 | PN- Housestaff ---
Luis Carlos Calvo 09/13/17 0757: Subjective Follow-up For: #Lateral tibial plateau fracture s/p fall Subjective: Patient reports back pain and knee pain with movement. Denies SOB, CP, nausea, vomiting, urinary or bowel symptoms Review of Systems Constitutional: Reports: see HPI. Objective Last 24 Hrs of Vital Signs/I&O Vital Signs Date Time Temp Pulse Resp B/P B/P Pulse O2 O2 Flow FiO2 Mean Ox Delivery Rate 09/13 06 98.0 57 16 134/80 95 Room Air 09/12 2206 98.1 68 22 116/70 96 09/12 1450 98.5 74 20 124/70 97 Intake & Output 09/13 1600 09/13 0800 09/13 0000 Intake Total 460 400 Output Total 400 600 Balance 60 -200 Intake, Oral 460 400 Number 0 Bowel Movements Output, Urine 400 600 Patient 127 lb Weight Physical Exam General Appearance: Alert, Oriented X3, Cooperative, No Acute Distress Cardiovascular: Regular Rate, Normal S1, Normal S2 Lungs: Clear to Auscultation, Normal Air Movement Abdomen: Normal Bowel Sounds, Soft, No Tenderness Extremities: No Edema Current Medications: Current Medications Sig/Gila Start time Last Medication Dose Route Stop Time Status Admin Acetaminophen 650 MG .STK-MED ONE 09/12 0931 DC PO 09/12 0932 Acetaminophen 650 MG Q4P PRN 09/10 1815 AC 09/12 PO 0934 Aspirin 81 MG DAILY 09/11 0900 AC 09/12 PO 0934 Clobetasol Propionate 1 IVÁN DAILY 09/11 0900 AC 09/12 TOP 0938 Enoxaparin Sodium 40 MG DAILY 09/10 1704 AC 09/12 SC 0934 Levothyroxine Sodium 0.125 MG DAILY AC 09/11 0700 AC 09/13 PO 0624 Montelukast Sodium 10 MG AT BEDTIME 09/11 2100 AC 09/12 PO 2108 Morphine Sulfate 1 MG Q6P PRN 09/10 181 AC IV Mycophenolate Mofetil 500 MG TID 09/10 2100 AC 09/12 PO 2108 Oxycodone/ 2 TAB Q4P PRN 09/10 181 AC Acetaminophen PO Pantoprazole Sodium 40 MG DAILY 09/10 1804 AC IV Assessment/Plan Assessment: Mr. Dobbins is a Indonesian speaking 68-year-old woman with past medical history of AFIB not on anticoagulation or rate control, morphea scleroderma, hyperlipidemia, asthma and hypothyroidism who presents to the ED with right knee pain after a fall. Problem list: #Mechanical fall #Lateral tibial plateau fracture Plan: Patient planned for surgery ORIF of the right knee with bone grafting On Wednesday. Patient will be nonweightbearing of the right lower extremity Continue levothyroxine, mycophenolate, Montelukast, clobetasol We will resume ASA as per surgery Continue pain meds Acetaminophen, morphine, acetaminophen/oxycodone IV Protonix daily Diet: Heart healthy DVT ppx: None pending surgery Code: Full Problem List: 1. Tibial plateau fracture, right Pain Ratin Pain Location: NA Pain Goal: Remain pain free Pain Plan: NA Tomorrow's Labs & Rationales: CBC, BEP Cristian AZAR,Bev 09/13/17 1206: Attending MD Review Statement Attending Statement Attending MD Statement: examined this patient, discuss w/resident/PA/PRESS SHOP SUPERVISOR, agreed w/resident/PA/PRESS SHOP SUPERVISOR, discussed with family, reviewed EMR data (avail), discussed with nursing, discussed with case mgmt, reviewed images, amended to note Attending Assessment/Plan: Patient seen and examined, doing well. Patient does not have any pain if she does not move. Her right lower extremity is in immobilizer. Vital Signs Date Time Temp Pulse Resp B/P B/P Pulse O2 O2 Flow FiO2 Mean Ox Delivery Rate 09/13 0620 98.0 57 16 134/80 95 Room Air 09/12 2206 98.1 68 22 116/70 96 09/12 1450 98.5 74 20 124/70 97 on exam; aox3, nad. cv; s1,s2, rrr resp; clear abd; soft, bs+ ext; rle is in immobilizer. no labs. A/P: 71 y/o F with pmh sig for AFIB, morphea scleroderma, hyperlipidemia, asthma and hypothyroidism admitted with a fall and found to have right sided Impacted lateral tibial plateau fracture and a hairline fracture of the fibular head extending along the tibiofibular joint. Large lipohemarthrosis. Patient is scheduled to go to operating room tomorrow. Dr. Miller is consulted. Continue current pain management. Patient feels comfortable with the current regimen. Patient on Lovenox for DVT prophylaxis should be held after today's dose. Aspirin also held. D/W patient's son at bedside.
[2017-09-13 08:14] VITALS: BP 110/80
[2017-09-13 14:16] VITALS: BP 130/80
[2017-09-13 14:19] VITALS: BP 130/80
[2017-09-13 22:32] VITALS: BP 128/80
[2017-09-14 05:51] VITALS: BP 112/80
--- NOTE | 2017-09-14 08:18 | PN- Housestaff ---
Luis Carlos Calvo 09/14/17 0817: Subjective Follow-up For: #Lateral tibial plateau fracture s/p fall Subjective: No acute events overnight. Denies SOB, CP, nausea, vomiting, urinary or bowel symptoms Review of Systems Constitutional: Reports: see HPI. Objective Last 24 Hrs of Vital Signs/I&O Vital Signs Date Time Temp Pulse Resp B/P B/P Pulse O2 O2 Flow FiO2 Mean Ox Delivery Rate 09/14 0551 98.0 57 20 112/80 97 Room Air 09/13 2232 98.3 66 20 128/80 98 09/13 1419 98.4 65 20 130/80 98 Room Air Intake & Output 09/14 1600 09/14 0800 09/14 0000 Intake Total 400 Output Total 400 400 Balance -400 0 Intake, Oral 400 Output, Urine 400 400 Patient 153 lb Weight Weight Bed scale Measurement Method Physical Exam General Appearance: Alert, Oriented X3, Cooperative, No Acute Distress Cardiovascular: Regular Rate, Normal S1, Normal S2 Lungs: Clear to Auscultation, Normal Air Movement Abdomen: Normal Bowel Sounds, Soft, No Tenderness Current Medications: Current Medications Sig/Gila Start time Last Medication Dose Route Stop Time Status Admin Acetaminophen 650 MG Q4P PRN 09/10 1815 AC 09/12 PO 0934 Bisacodyl 5 MG DAILY 09/13 1800 AC 09/13 PO 1915 Clobetasol Propionate 1 IVÁN DAILY 09/11 0900 AC 09/13 TOP 0820 Enoxaparin Sodium 40 MG DAILY 09/13 0900 DC 09/13 SC 09/13 0901 1107 Levothyroxine Sodium 0.125 MG DAILY AC 09/11 0700 AC 09/13 PO 0624 Montelukast Sodium 10 MG AT BEDTIME 09/11 2100 AC 09/13 PO 2008 Morphine Sulfate 1 MG Q6P PRN 09/10 1815 AC IV Mycophenolate Mofetil 500 MG TID 09/10 2100 AC 09/13 PO 2008 Oxycodone/ 2 TAB Q4P PRN 09/10 181 AC Acetaminophen PO Pantoprazole Sodium 40 MG DAILY 09/10 1804 AC 09/14 IV 0800 Patient Medication 1 ED ONE ONE 09/13 1400 DC 09/13 Teaching ED 09/13 1401 1415 Polyethylene Glycol 17 GM DAILY 09/13 1800 AC 09/13 PO 1915 Sodium Chloride 1,000 ML Q20H 09/14 0715 AC 09/14 IV 0805 Last 24 Hrs of Lab/Loki Results Last 24 Hrs of Labs/Mics: Laboratory Tests 09/14/17 0735: Sodium Pending, Potassium Pending, Chloride Pending, Carbon Dioxide Pending, Anion Gap Pending, BUN Pending, Creatinine Pending, BUN/Creatinine Ratio Pending , CBC w Diff Pending, WBC Pending, RBC Pending, Hgb Pending, Hct Pending, MCV Pending, MCH Pending, MCHC Pending, RDW Pending, Plt Count Pending, MPV Pending Assessment/Plan Assessment: aislinn Dobbins is a Estonian speaking 68-year-old woman with past medical history of AFIB not on anticoagulation or rate control, morphea scleroderma, hyperlipidemia, asthma and hypothyroidism who presents to the ED with right knee pain after a fall. Problem list: #Mechanical fall #Lateral tibial plateau fracture Plan: Patient planned for surgery ORIF of the right knee with bone grafting today. Patient nonweightbearing of the right lower extremity Continue levothyroxine, mycophenolate, Montelukast, clobetasol We will resume ASA and DVT ppx as per surgery postop Continue pain meds Acetaminophen, morphine, acetaminophen/oxycodone IV Protonix daily Diet: Heart healthy DVT ppx: None pending surgery Code: Full Problem List: 1. Tibial plateau fracture, right Pain Ratin Pain Location: NA Pain Goal: Remain pain free Pain Plan: NA Tomorrow's Labs & Rationales: cbc, bep Cristian AZAR,Bev 09/14/17 1156: Attending MD Review Statement Attending Statement Attending MD Statement: examined this patient, discuss w/resident/PA/GENERAL CONTRACTOR, agreed w/resident/PA/GENERAL CONTRACTOR, discussed with family, reviewed EMR data (avail), discussed with nursing, discussed with case mgmt, reviewed images, amended to note Attending Assessment/Plan: Patient seen and examined, she is awaiting to go for surgery. She otherwise denies any complaint and her pain is well controlled on current regimen. Vital Signs Date Time Temp Pulse Resp B/P B/P Pulse O2 O2 Flow FiO2 Mean Ox Delivery Rate 09/14 0551 98.0 57 20 112/80 97 Room Air 09/13 2232 98.3 66 20 128/80 98 09/13 1419 98.4 65 20 130/80 98 Room Air on exam; aox3, nad. cv; s1,s2, rrr resp; clear abd; soft, nt, bs+ ext; no edema, rle is in immobilizer Laboratory Tests 09/14 0735 Chemistry Sodium (137 - 145 mmol/L) 140 Potassium (3.5 - 5.1 mmol/L) 4.4 Chloride (98 - 107 mmol/L) 104 Carbon Dioxide (22 - 30 mmol/L) 26 Anion Gap (5 - 16) 10 BUN (7 - 17 mg/dL) 21 H Creatinine (0.5 - 1.0 mg/dL) 0.5 Estimated GFR (>60 ml/min) > 60 BUN/Creatinine Ratio (7 - 25 %) 42.0 H Hematology CBC w Diff NO MAN DIFF REQ WBC (4.8 - 10.8 /CUMM) 4.1 L RBC (4.20 - 5.40 /CUMM) 4.96 Hgb (12.0 - 16.0 G/DL) 13.5 Hct (37 - 47 %) 41.1 MCV (81.0 - 99.0 FL) 82.8 MCH (27.0 - 31.0 PG) 27.2 MCHC (33.0 - 37.0 G/DL) 32.8 L RDW (11.5 - 14.5 %) 13.2 Plt Count (130 - 400 /CUMM) 191 MPV (7.4 - 10.4 FL) 8.5 Gran % (42.2 - 75.2 %) 71.6 Lymphocytes % (20.5 - 51.1 %) 20.1 L Monocytes % (1.7 - 9.3 %) 6.5 Eosinophils % (0 - 5 %) 1.5 Basophils % (0.0 - 2.0 %) 0.3 Absolute Granulocytes (1.4 - 6.5 /CUMM) 2.9 Absolute Lymphocytes (1.2 - 3.4 /CUMM) 0.8 L Absolute Monocytes (0.10 - 0.60 /CUMM) 0.3 Absolute Eosinophils (0.0 - 0.7 /CUMM) 0.1 Absolute Basophils (0.0 - 0.2 /CUMM) 0 A/P: 71 y/o F with pmh sig for AFIB, morphea scleroderma, hyperlipidemia, asthma and hypothyroidism admitted with a fall and found to have right sided Impacted lateral tibial plateau fracture and a hairline fracture of the fibular head extending along the tibiofibular joint. Large lipohemarthrosis. Patient undergoing surgery today. Postoperative care will be per surgery. We' ll encourage incentive spirometry and physical therapy postoperatively. DVT prophylaxis will be up to the orthopedic postoperatively. Continue current management. Might need Rehab. D/W patient's daughter at bedside.
[2017-09-14 08:44] LABS: ABSOLUTE BASOPHIL COUNT 0 /CUMM (0.0-0.2); ABSOLUTE EOSINOPHIL COUNT 0.1 /CUMM (0.0-0.7); ABSOLUTE GRANULOCYTE CT 2.9 /CUMM (1.4-6.5); ABSOLUTE LYMPH COUNT 0.8 /CUMM (1.2-3.4); ABSOLUTE MONOCYTE COUNT 0.3 /CUMM (0.10-0.60); BASOPHIL % 0.3 % (0.0-2.0); EOSINOPHIL % 1.5 % (0-5); GRANULOCYTE % 71.6 % (42.2-75.2); HEMATOCRIT 41.1 % (37-47); MEAN CORPUSCULAR HGB 27.2 PG (27.0-31.0); MEAN CORPUSCULAR HGB CONC 32.8 G/DL (33.0-37.0); MEAN CORPUSCULAR VOLUME 82.8 FL (81.0-99.0); MEAN PLATELET VOLUME 8.5 FL (7.4-10.4); PLATELET COUNT 191 /CUMM (130-400); RBC DISTRIBUTION WIDTH 13.2 % (11.5-14.5); RED BLOOD CELL CT 4.96 /CUMM (4.20-5.40); WHITE BLOOD CELL COUNT 4.1 /CUMM (4.8-10.8)
--- NOTE | 2017-09-14 10:05 | Operative Report ---
Operative/Inv Procedure Report Surgery Date: 09/14/17 Name of Procedure: Open reduction internal fixation right lateral tibial plateau fracture with allograft cancellous bone grafting. Pre-Operative Diagnosis: Displaced, closed right knee split depression lateral tibial plateau fracture. Post-Operative Diagnosis: Same. Estimated Blood Loss: 50ml to 100ml Surgeon/Core Shaper Sides: Oleksandr Miller / Oleksandr Mittal Anesthesia: laryngeal mask airway Monitors: EKG/blood pressure/oxygen saturation. IV Fluids: Lactated Ringer's. Implants: 1) Syntheses lateral tibial plateau buttress plate fixed with multiple screws. 2) Autologous cancellous bone chips for bone grafting. Urine Output: None. Drains: Small COLIN drain 1 Specimens: None. Microbiology: None. Tourniquet: 116 minutes at 300 mmHg. Complications: None known. Condition: Stable. Operative Indication: The patient is a 71-year-old relatively healthy and very active female who sustained a mechanical trip and fall down several stairs on 09/10/2017. She presented to the [facility] emergency room for her injury. X-rays of the right knee showed a split depressed lateral tibial plateau fracture. This was confirmed on CT scan. Recommendations were initially made for operative management and I did recommend that the patient be admitted same. She was admitted to the medical service for stabilization and optimization and clearance for surgery. The risks and benefits and expected outcomes of nonoperative management versus that of operative intervention were discussed with the patient and with her family at length. All of their questions were answered at length and in detail. After discussion of the issues and answering questions the patient and her family did decide that they would like to move forward with open reduction internal fixation of the patient's right lateral tibial plateau fracture with bone grafting as indicated which was my overall recommendation is the best management for this injury. Surgical consent was therefore obtained. Operative/Procedure Note Note: The patient was brought to the operating room placed on the operating table in supine position. General anesthesia via LMA was induced by the anesthesiologist. All bony prominences were well-padded. A dose of IV antibiotics were given for infection prophylaxis. A well-padded tourniquet was applied to the proximal portion of the right thigh. A bump was placed underneath the right buttocks to help internally rotate the right lower extremity. A compression sleeve was placed on the contralateral left lower extremity to hopefully cut down on lower extremity venous pooling and blood clot formation and propagation. The right lower extremity was then prepped and draped in the usual sterile fashion. The patient's skin on the right lower extremity was planned for an lateral/ anterolateral approach to the proximal tibia. After the skin was marked the extremity was exsanguinated and the pneumatic tourniquet was inflated to a pressure of 3 and a millimeters mercury. The skin incision was created sharply with a scalpel. Sharp dissection was continued down full-thickness through the skin and subcutaneous tissues down to the deep fascial layer of the skin. Full- thickness flaps were raised anteriorly and posterior lip. We now had visualization of the iliotibial band and Gerdy's tubercle. The iliotibial band was split and partially reflected off of Gerdy's tubercle. We next performed a transverse capsulotomy at the level of the lateral tibiofemoral compartment joint line and then performed a sub-meniscal dissection to elevate the lateral meniscus off of the underlying subchondral bone. We tagged the lateral meniscus with multiple 0 Vicryl sutures for later repair to the lateral buttress plate after elevating and stabilizing the articular surface. We now had good visualization of the articular surface which was again showing a split depressed comminuted fracture involving the lateral tibial plateau. We irrigated out the joint to remove debris and blood clot. The fracture fragment was mobilized slightly and then we used a periarticular clamp to try to stabilize the lateral tibial plateau displaced fracture fragment back to the main lateral tibial condyle. Fluoroscopic imaging showed depression of subchondral bone consistent with the more central depression of the articular surface. We opened the fracture up slightly by loosening the the periarticular clamp. This allowed us to partially elevate the subchondral bone and the lateral tibial plateau articular cartilage. We tightened the periarticular clamp down once again. We definitely needed bone grafting to fill and support the void starting to be created under the elevated subchondral bone and articular cartilage. With this in mind we created a small cortical window just below the distal extent of the fracture of the lateral tibial plateau on the lateral tibial metadiaphyseal cortical bone. This was accomplished by placing several drill holes into the bone and then connecting the drill holes using an osteotome and mallet. The cortical window was elevated now leaving us access to the medullary canal. We next used 15 mL of cancellous bone cubes which we broke up into varying size chunks using [employer]. We next meticulously began packing the entirety of the 15 mL of the bone graft up into the bone void created by elevating the joint surface. As we did this we further elevated the subchondral bone and the joint surface as we continue to pack the bone and with a tamp from below. Once we were satisfied with the subchondral bone and articular cartilage elevation with bone grafting from below, we placed several small K wires in a lateral to medial direction just under the subchondral bone of the lateral tibial plateau extending the K wires over to the medial tibial condyle to help provide some provisional fixation of the displaced lateral tibial plateau fracture back to the lateral tibial condyle while also supporting the subchondral bone. This allowed us to remove the periarticular plate. We next selected a [employer] precontoured short lateral tibial plateau plate which was applied to the lateral tibial condyle just below the subchondral bone and extending along the upper lateral tibial shaft. We repositioned the plate and then pinned the plate proximally and distally with K wires under fluoroscopic control when we were satisfied with the positioning of the plate. We pulled the plate down to the bone very snugly using a bicortical nonlocking screw in one of the upper holes of the plate below the upper transverse rafting screw row of screws. We next secured the plate proximally to the bone by placing multiple locking screws through the screw holes in the upper end of the plate. At least one of these screws were directed as a shorter screw in a more proximal direction to help support the subchondral bone. The remaining screws were run more or less direct lateral to medial to provide plate fixation as well as some supportive bone graft and subchondral bone and general fixation of the plate and lateral tibial plateau fracture fragment. After we were satisfied with proximal fixation of the plate as confirmed visually but also in both AP and lateral fluoroscopic projections of the knee we secured the plate towards the distal end of the bone with another cortical screw placed in bicortical fashion to gain good compression and approximation of the plate to the lateral tibial shaft cortical bone. The remaining screws placed distally were locking screws. We additionally placed a kickstand screw through the contoured plate hole design for this. Once all screws and plate were in position we obtained final AP and lateral fluoroscopic images of the knee which confirmed a very nice elevation of the subchondral bone and joint surface with bone grafting from below and good positioning and seemingly good fixation of the plate and screws to secure this. These images were taken and saved for hard copy. Our attention was now directed towards closure. The joint was irrigated out once again. We repaired the lateral meniscus to the small holes in the most proximal aspect of the plate designed for this. The sutures were tied down accomplishing an acceptable repair and stabilization of the lateral meniscus. The bone and implant and soft tissues were irrigated once again. The tourniquet was deflated and hemostasis was achieved with a combination of manual pressure and electrocautery. We did elect to place a small COLIN drain 1 in subfascial fashion bringing the drain out into the distal anterolateral thigh. We closed the deep fascia with muscle over the COLIN drain and covering the plate and screws. We placed some additional sutures in the distal iliotibial band. We irrigated the soft tissues once again. The subcutaneous tissues were closed in layers using 0 Vicryl in the deep subcutaneous tissue layer followed by 2-0 Vicryl placed in the more superficial subcutaneous tissue layer. The skin margins were then approximated using 3-0 nylon placed in horizontal mattress fashion. The wound was washed and dried. Xeroform nonadherent dressing was applied over the suture line. Sterile gauze dressings were placed over and about the incision and proximal leg and about the exit site for the COLIN drain tube. We next placed additional gauze dressings and abdominal pads which were held in place with gauze wrap. The extremity was wrapped with Shaun bandages and then placed into a long-leg knee immobilizer in full knee extension. The patient was awakened from general anesthesia and then transferred to the hospital bed and brought to the recovery room in stable condition having tolerated the procedure well. Findings: 1) Acceptable fracture reduction, alignment, and length achieved. 2) Acceptable hardware position and fixation achieved. Discharge Disposition: PACU
[2017-09-14 16:00] VITALS: BP 132/76
--- NOTE | 2017-09-14 16:40 | RADIOLOGY REPORT ---
EXAMINATION: XR KNEE, RIGHT CLINICAL INFORMATION: ORIF right knee in OR. COMPARISON: 09/10/2017 TECHNIQUE: 15 intraoperative fluoroscopic images of the right knee. 2 views of the right knee. Total fluoroscopic time 79.7 seconds. FINDINGS: Initial image demonstrates the lateral tibial plateau fracture. There is manipulation of the fracture fragments. There is subsequent placement of plate and screw fixation hardware transfixing the fracture. Final images demonstrate near anatomic alignment. IMPRESSION: Fluoroscopic guidance for internal fixation of lateral tibial plateau fracture with near-anatomic alignment.
--- NOTE | 2017-09-14 17:32 | PN- Orthopedic ---
See Addendum Subjective Subjective: Postop check: Patient resting comfortably. Pain is well controlled. No other complaints. Tolerated procedure well earlier today without complications Objective Vital Signs and I&Os Vital Signs Date Time Temp Pulse Resp B/P B/P Pulse O2 O2 Flow FiO2 Mean Ox Delivery Rate 09/14 1600 98.6 62 18 132/76 97 Room Air 09/14 1517 Room Air 09/14 0551 98.0 57 20 112/80 97 Room Air 09/13 2232 98.3 66 20 128/80 98 Intake & Output 09/14 1600 09/14 0800 09/14 0000 09/13 1600 09/13 0800 09/13 0000 Intake Total 400 420 460 400 Output Total 1600 400 650 400 600 Balance -1600 0 -230 60 -200 Intake, IV 20 Intake, Oral 400 400 460 400 Number 0 Bowel Movements Output, Urine 1600 400 650 400 600 Patient 153 lb 127 lb Weight Weight Bed scale Measurement Method Physical Exam: Well-developed well-nourished no apparent distress. HEENT: Atraumatic, extraocular motion intact Neck: Supple, no lymphadenopathy Respiratory: No respiratory distress Extremities: RIGHT lower extremity dressing in place, Dressing clean dry and intact Compression wrap in place. ALPS in place Neurovascularly intact distally Neuro: Alert and oriented x3 Psych: Mood affect normal, normal memory normal judgment. Skin: Warm and dry, no rash on exposed skin Assessment/Plan Assessment/Plan Postop day #0 status post right lateral tibial plateau fracture ORIF Perioperative antibiotics. Pain medication as needed. Out of bed with physical therapy tomorrow, nonweightbearing right lower extremity Aspirin 325 mg p.o. twice daily for DVT prophylaxis 6 weeks ALPS for DVT prophylaxis Knee immobilizer Ice Regular home meds Dressing change per surgery Will follow
[2017-09-14 22:01] VITALS: BP 120/70
[2017-09-15 07:04] VITALS: BP 136/64
--- NOTE | 2017-09-15 07:40 | PN- Housestaff ---
See Addendum Subjective Follow-up For: #Lateral tibial plateau fracture s/p ORIF POD 1 Subjective: Patient reports pain is being well controlled. Denies SOB, CP, palpitations, confusion, nausea, vomiting, urinary or bowel symptoms Review of Systems Constitutional: Reports: see HPI. Objective Last 24 Hrs of Vital Signs/I&O Vital Signs Date Time Temp Pulse Resp B/P B/P Pulse O2 O2 Flow FiO2 Mean Ox Delivery Rate 09/15 0704 99.1 60 16 136/64 97 Room Air 09/14 2201 98.1 63 20 120/70 97 09/14 2139 Room Air 09/14 1600 98.6 62 18 132/76 97 Room Air 09/14 1517 Room Air Intake & Output 09/15 1600 09/15 0800 09/15 0000 Intake Total 470 270 Output Total 665 1150 Balance -195 -880 Intake, IV 350 150 Intake, Oral 120 120 Number 0 Bowel Movements Output, 15 50 Drainage Output, Urine 650 1100 Patient 157 lb Weight Weight Bed scale Measurement Method Physical Exam General Appearance: Alert, Oriented X3, Cooperative, No Acute Distress Cardiovascular: Regular Rate, Normal S1, Normal S2 Lungs: Clear to Auscultation, Normal Air Movement Abdomen: Normal Bowel Sounds, Soft, No Tenderness Extremities: RE cast intact Current Medications: Current Medications Sig/Gila Start time Last Medication Dose Route Stop Time Status Admin Acetaminophen 650 MG Q4P PRN 09/14 1615 AC 09/14 PO 2016 Acetaminophen 650 MG Q4P PRN 09/14 1415 DC PO Acetaminophen 1,000 MG .STK-MED ONE 09/14 1011 DC IV 09/14 1012 Acetaminophen 650 MG Q4P PRN 09/10 1815 DC 09/12 PO 0934 Albuterol Sulfate 2 PUF Q4-PRN PRN 09/14 2145 AC INH Aspirin 325 MG BID 09/14 2100 AC 09/15 PO 0736 Bisacodyl 5 MG DAILY 09/15 0900 AC 09/15 PO 0736 Bisacodyl 5 MG DAILY 09/13 1800 DC 09/13 PO 1915 Cefazolin Sodium 2 GM Q8H 09/14 1830 DC 09/15 N/A 1 UNIT IV 09/15 0259 0142 Clobetasol Propionate 1 IVÁN DAILY 09/15 0900 AC 09/15 TOP 0734 Clobetasol Propionate 1 IVÁN DAILY 09/11 0900 DC 09/13 TOP 0820 Fentanyl Citrate 250 MCG .STK-MED ONE 09/14 1011 DC IM 09/14 1012 Hydromorphone HCl 2 MG .STK-MED ONE 09/14 1351 DC IM 09/14 1352 Hydromorphone HCl 2 MG .STK-MED ONE 09/14 1013 DC IM 09/14 1014 Levothyroxine Sodium 0.125 MG DAILY AC 09/15 0700 DC PO Levothyroxine Sodium 0.125 MG DAILY AC 09/15 0700 AC 09/15 PO 0547 Levothyroxine Sodium 0.125 MG DAILY AC 09/11 0700 DC 09/13 PO 0624 Midazolam HCl 2 MG .STK-MED ONE 09/14 1011 DC IM 09/14 1012 Montelukast Sodium 10 MG AT BEDTIME 09/14 2100 DC PO Montelukast Sodium 10 MG AT BEDTIME 09/14 2100 AC 09/14 PO 2009 Montelukast Sodium 10 MG AT BEDTIME 09/11 2100 DC 09/13 PO 2008 Morphine Sulfate 1 MG Q6P PRN 09/14 1615 AC IV Morphine Sulfate 1 MG Q6P PRN 09/14 1415 DC IV Morphine Sulfate 1 MG Q6P PRN 09/10 1815 DC IV Mycophenolate Mofetil 500 MG TID 09/14 2100 AC 09/14 PO 2118 Mycophenolate Mofetil 500 MG TID 09/14 1400 DC PO Mycophenolate Mofetil 500 MG TID 09/10 2100 DC 09/13 PO 2008 Omeprazole 40 MG DAILY AC 09/15 0747 AC PO Oxycodone HCl 10 MG Q6P PRN 09/14 2030 AC 09/15 PO 0649 Oxycodone/ 2 TAB Q4P PRN 09/14 1615 DC Acetaminophen PO Oxycodone/ 2 TAB Q4P PRN 09/14 1415 DC Acetaminophen PO Oxycodone/ 2 TAB Q4P PRN 09/10 1815 DC Acetaminophen PO Pantoprazole Sodium 40 MG DAILY 09/15 0900 DC IV Pantoprazole Sodium 40 MG DAILY 09/15 0900 DC 09/15 IV 0736 Pantoprazole Sodium 40 MG DAILY 09/10 1804 DC 09/14 IV 0800 Patient Medication 1 ED ONE ONE 09/14 1715 DC Teaching ED 09/14 1716 Polyethylene Glycol 17 GM DAILY 09/15 0900 AC 09/15 PO 0736 Polyethylene Glycol 17 GM DAILY 09/13 1800 DC 09/13 PO 1915 Sodium Chloride 1,000 ML Q20H 09/15 0315 DC 09/15 IV 0548 Sodium Chloride 1,000 ML Q20H 09/14 0715 DC 09/14 IV 09/15 0314 0805 Last 24 Hrs of Lab/Loki Results Last 24 Hrs of Labs/Mics: Laboratory Tests 09/15/17 0658: Anion Gap 10, Estimated GFR > 60, BUN/Creatinine Ratio 23.3, CBC w Diff NO MAN DIFF REQ, RBC 4.28, MCV 82.4, MCH 27.5, MCHC 33.3, RDW 12.8, MPV 8.3, Gran % 78.9 H, Lymphocytes % 12.4 L, Monocytes % 8.2, Eosinophils % 0.3, Basophils % 0.2, Absolute Granulocytes 4.9, Absolute Lymphocytes 0.8 L, Absolute Monocytes 0.5, Absolute Eosinophils 0, Absolute Basophils 0 Assessment/Plan Assessment: Ms. Dobbins is a Bahraini speaking 68-year-old woman with past medical history of AFIB not on anticoagulation or rate control, morphea scleroderma, hyperlipidemia, asthma and hypothyroidism who presents to the ED with right knee pain after a fall. Problem list: #Mechanical fall #Lateral tibial plateau fracture s/p ORIF Plan: Patient will work with PT today Patient nonweightbearing of the right lower extremity Continue ASA 325 mg BID x 6 weeks as per Ortho Continue levothyroxine, mycophenolate, Montelukast, clobetasol Continue pain meds Acetaminophen, morphine, acetaminophen/oxycodone IV Protonix daily Diet: Heart healthy DVT ppx: ASA Code: Full Problem List: 1. Tibial plateau fracture, right Pain Ratin Pain Location: RLE Pain Goal: Pain 4 or less Pain Plan: Oxycodone, Morphine Tomorrow's Labs & Rationales: CBC, BEP
[2017-09-15 08:15] LABS: ABSOLUTE BASOPHIL COUNT 0 /CUMM (0.0-0.2); ABSOLUTE EOSINOPHIL COUNT 0 /CUMM (0.0-0.7); ABSOLUTE GRANULOCYTE CT 4.9 /CUMM (1.4-6.5); ABSOLUTE LYMPH COUNT 0.8 /CUMM (1.2-3.4); ABSOLUTE MONOCYTE COUNT 0.5 /CUMM (0.10-0.60); BASOPHIL % 0.2 % (0.0-2.0); EOSINOPHIL % 0.3 % (0-5); GRANULOCYTE % 78.9 % (42.2-75.2); MEAN CORPUSCULAR HGB 27.5 PG (27.0-31.0); MEAN CORPUSCULAR HGB CONC 33.3 G/DL (33.0-37.0); MEAN CORPUSCULAR VOLUME 82.4 FL (81.0-99.0); MEAN PLATELET VOLUME 8.3 FL (7.4-10.4); PLATELET COUNT 194 /CUMM (130-400); RBC DISTRIBUTION WIDTH 12.8 % (11.5-14.5); RED BLOOD CELL CT 4.28 /CUMM (4.20-5.40)
[2017-09-15 08:52] LABS: HEMATOCRIT 35.3 % (37-47); WHITE BLOOD CELL COUNT 6.2 /CUMM (4.8-10.8)
--- NOTE | 2017-09-15 10:05 | PN- Orthopedic ---
Subjective Subjective: pod#1 s/p orif right tib pateau fx sitting up in bed eating breakfast deneis cp, sob, no n+v with diet Objective Vital Signs and I&Os Vital Signs Date Time Temp Pulse Resp B/P B/P Pulse O2 O2 Flow FiO2 Mean Ox Delivery Rate 09/15 0704 99.1 60 16 136/64 97 Room Air 09/14 2201 98.1 63 20 120/70 97 09/14 2139 Room Air 09/14 1600 98.6 62 18 132/76 97 Room Air 09/14 1517 Room Air Intake & Output 09/15 1600 09/15 0800 09/15 0000 09/14 1600 09/14 0800 09/14 0000 Intake Total 470 270 400 Output Total 665 1150 1600 400 Balance -195 -880 -1600 0 Intake, IV 350 150 Intake, Oral 120 120 400 Number 0 Bowel Movements Output, 15 50 Drainage Output, Urine 650 1100 1600 400 Patient 157 lb 153 lb Weight Weight Bed scale Bed scale Measurement Method Physical Exam: cv: rrr lungs; clera abd: soft, +bs ext: drsg changed wound c/d/i minimal edema, colf soft, distal cms intct Assessment/Plan Assessment/Plan ortho stble plan oob with pt asa bid for dvt prophylaxis strict nwb right le may provide gentle rom to right knee
[2017-09-15 13:45] VITALS: BP 142/62
--- NOTE | 2017-09-15 13:59 | Discharge Summary ---
Visit Information Visit Dates Admission Date: 09/10/17 Discharge Date: 09/17/2017 Hospital Course Course Attending Physician: Bev Foster MD Primary Care Physician: Scott Henson MD Hospital Course: Patient is a 71-year-old, Guinean speaking female,with past medical history of hyperlipidemia, morphea, asthma, hypothyroidism,BIBA secondary to fall down the stairs. ED course - Vital signs at the time of admission -temperature 98.9, pulse 75, respiratory 18 , pressure 139/81, SPO2 98% on room air Physical examination -patient was conscious, cooperative, able to answer most of the question. Right lower extremity there was swelling on the right upper quadrant of the knee, movement at the right knee most painful, on palpation there was tenderness. She was able to move left leg, foot without any difficulty. Blood workup -hemoglobin 13.5, hematocrit 41.0, platelet count 180, sodium 143, potassium 4.2, chloride 105, carbon dioxide 27, anion gap 12, BUN 12, creatinine 0.4, glucose 84, calcium 10.6, total bilirubin 1.1, AST 29, ALT 30, alkaline phosphatase [address] scan -Impacted lateral tibial plateau fracture, and a hairline fracture of the fibular head extending along the tibiofibular joint. Large lipohemarthrosis. Hip and knee x-ray - Depressed lateral tibial plateau fracture with large lipohemarthrosis. No any fracture. Displaced, closed right knee split depression lateral tibial plateau fracture - s/p ORIF and allograft cancellous bone grafting on 09/14/2017 - We admitted the patient to general medicine floor. We obtained orthopedic consult, advised for surgery. She underwent ORIF of the right knee lateral tibial plateau fracture with allograft cancellous bone grafting on 09/14/2017. Postoperative period was uneventful.Patient was given IV pain medication, kept knee in knee immobilizer, ICE and nonweight bearing right lower extremity PT. We started patient on tablet aspirin 325 p.o. twice daily for total 6 week (2017 -10/26/2017).We discharged patient to [facility] for further rehabilitation. Chronic medical condition -hypothyroidism, extensive morphea * Continue all home medication as before Allergies: Coded Allergies: lactose (Mild, GI DISTRESS 09/10/17) Disposition Summary Disposition Principal Diagnosis: Displaced, closed right knee split depression lateral tibial plateau fracture - s/p ORIF and allograft cancellous bone grafting on 09/14/2017 Additional Diagnosis: Hypothyroidism Morphea Discharge Disposition: SNF Discharge Instructions General Discharge Information Code Status: Full Code Patient's Diet: Regular diet Patient's Activity: Non weight bearing on right leg Follow-Up Instructions/Appts: Please follow-up with your PCP within a week of discharge Please follow-up with orthopedic within a month of discharge. Patient may need x-ray and outpatient physical therapy after discharge. Medications at Discharge Discharge Medications: Stop taking the following medications: Aspirin (Aspirin*) 81 MG TAB.CHEW ORAL DAILY Continue taking these medications: Levothyroxine Sodium (Levothyroxine Sodium) 125 MCG TABLET 1 Tablet ORAL DAILY Qty = 90 Comments: Last Taken:09/17/17 Time:05:09A.M Montelukast Sodium (Montelukast Sodium) 10 MG TABLET 1 Tablet ORAL DAILY Qty = 90 Comments: Last Taken:09/16/17 Time:9:44P.M Mycophenolate Mofetil (Cellcept) 500 MG TABLET 1 Tablet ORAL THREE TIMES DAILY Comments: Last Taken:09/17/17 Time:11:48A.M Clobetasol Propionate (Clobetasol Propionate) 0.05 % CREAM..G. 1 Application On the skin DAILY Instructions: apply to affected area(s) Comments: Last Taken:09/17/16 Time:8:37A.M Albuterol Sulfate (Proair Hfa) 90 MCG HFA.AER.AD 2 Puff Inhale through mouth As Directed as needed for RESP. Comments: NOT GIVEN THIS ADMISSION Cholecalciferol (Vitamin D3) (Vitamin D) (Unknown Strength) CAPSULE Unknown Dose ORAL DAILY Comments: NOT GIVEN THIS ADMISSION Start taking the following new medications: Omeprazole (Omeprazole) 20 MG CAPSULE.DR 40 Milligram ORAL DAILY BEFORE BREAKFAST Qty = 30 No Refills Instructions: . Comments: Last Taken:09/17/17 Time:5:09A.M Polyethylene Glycol 3350 (Miralax) 17 GRAM/DOSE POWDER 17 Gram ORAL DAILY Qty = 7 No Refills Instructions: . Comments: Last Taken:09/17/17 Time:8:37A.M Acetaminophen (Tylenol) 325 MG TABLET 650 Milligram ORAL EVERY 4 HOURS NEEDED as needed for PAIN SCALE 1-3 ( MILD) Qty = 20 No Refills Instructions: . Comments: Last Taken:09/14/17 Time:8P.M Aspirin (Aspirin*) 325 MG TABLET 325 Milligram ORAL TWICE DAILY Qty = 80 No Refills Instructions: Take for 6 weeks for clot prevention End date 10/26/17 Comments: Last Taken:09/17/17 Time:8:37A.M Oxycodone HCl (Oxycodone HCl) 10 MG TABLET 10 Milligram ORAL EVERY SIX HOURS NEEDED as needed for PAIN SCALE 4-6 ( MODERATE) Qty = 12 No Refills Instructions: . Comments: Last Taken:09/15/17 Time:6:49A.M Copies To: Sixto AZAR,Scott Zaidi; Angela AZAR,Alfred Attending MD Review Statement Documenting Attending: Cristian AZAR,Bev
[2017-09-15 22:16] VITALS: BP 140/60
[2017-09-16 06:19] VITALS: BP 104/60
--- NOTE | 2017-09-16 07:26 | PN- Housestaff ---
Luis Carlos Calvo 09/16/17 0725: Subjective Follow-up For: #Lateral tibial plateau fracture s/p ORIF POD 2 Subjective: Patient reports pain is being well controlled. Son at bedside reports his sister who is an title attorney reports they are unsure if the will be sending their mom to [facility] vs home. Denies SOB, CP, palpitations, confusion, nausea, vomiting, urinary or bowel symptoms Review of Systems Constitutional: Reports: see HPI. Objective Last 24 Hrs of Vital Signs/I&O Vital Signs Date Time Temp Pulse Resp B/P B/P Pulse O2 O2 Flow FiO2 Mean Ox Delivery Rate 09/16 06 98.9 72 20 104/60 97 Room Air 09/15 2216 98.6 69 18 140/60 96 Room Air 09/15 1436 Room Air 09/15 1345 98.3 62 16 142/62 97 Room Air Intake & Output 09/16 1600 09/16 0800 09/16 0000 Intake Total 460 600 Output Total 500 600 Balance -40 0 Intake, Oral 460 600 Number 1 Bowel Movements Output, Urine 500 600 Physical Exam General Appearance: Alert, Oriented X3, Cooperative, No Acute Distress Cardiovascular: Regular Rate, Normal S1, Normal S2 Lungs: Clear to Auscultation, Normal Air Movement Abdomen: Normal Bowel Sounds, Soft, No Tenderness Extremities: R casts intact Current Medications: Current Medications Sig/Gila Start time Last Medication Dose Route Stop Time Status Admin Acetaminophen 650 MG .STK-MED ONE 09/15 2245 DC PO 09/15 224 Acetaminophen 650 MG Q4P PRN 09/14 1615 AC 09/14 PO 2016 Albuterol Sulfate 2 PUF Q4-PRN PRN 09/14 2145 AC INH Aspirin 325 MG BID 09/14 2100 AC 09/15 PO 2157 Bisacodyl 10 MG ONCE ONE 09/15 1430 DC NM 09/15 1431 Bisacodyl 10 MG ONCE ONE 09/15 0930 DC 09/15 NM 09/15 0931 1330 Bisacodyl 5 MG DAILY 09/15 09 AC 09/15 PO 0736 Clobetasol Propionate 1 IVÁN DAILY 09/15 0900 AC 09/15 TOP 0734 Levothyroxine Sodium 0.125 MG DAILY AC 09/15 0700 AC 09/16 PO 0544 Magnesium Hydroxide 30 ML ONE ONE 09/15 0930 DC 09/15 PO 09/15 0931 1140 Montelukast Sodium 10 MG AT BEDTIME 09/14 2100 AC 09/15 PO 2157 Morphine Sulfate 1 MG Q6P PRN 09/14 1615 AC IV Mycophenolate Mofetil 500 MG TID 09/15 1600 DC PO Mycophenolate Mofetil 500 MG 1100,1600,2300 09/15 1600 AC 09/15 PO 2248 Mycophenolate Mofetil 500 MG TID 09/14 2100 DC 09/15 PO 1049 Omeprazole 40 MG DAILY AC 09/15 0747 AC 09/16 PO 0544 Oxycodone HCl 10 MG Q6P PRN 09/14 2030 AC 09/15 PO 0649 Pantoprazole Sodium 40 MG DAILY 09/15 0900 DC IV Pantoprazole Sodium 40 MG DAILY 09/15 0900 DC 09/15 IV 0736 Patient Medication 1 ED ONE ONE 09/15 1145 DC Teaching ED 09/15 1146 Polyethylene Glycol 17 GM DAILY 09/15 0900 AC 09/15 PO 0736 Last 24 Hrs of Lab/Loki Results Last 24 Hrs of Labs/Mics: Laboratory Tests 09/16/17 0706: CBC w Diff Pending, WBC Pending, RBC Pending, Hgb Pending, Hct Pending, MCV Pending, MCH Pending, MCHC Pending, RDW Pending, Plt Count Pending, MPV Pending Assessment/Plan Assessment: Ms. Dobbins is a Iraqi speaking 68-year-old woman with past medical history of AFIB not on anticoagulation or rate control, morphea scleroderma, hyperlipidemia, asthma and hypothyroidism who presents to the ED with right knee pain after a fall. Problem list: #Mechanical fall #Lateral tibial plateau fracture s/p ORIF POD 2 Plan: Continue PT Patient nonweightbearing of the right lower extremity Continue ASA 325 mg BID x 6 weeks as per Ortho Continue levothyroxine, mycophenolate, Montelukast, clobetasol Continue pain meds Acetaminophen, morphine, acetaminophen/oxycodone IV Protonix daily Diet: Heart healthy DVT ppx: ASA Code: Full Dispo: pending Problem List: 1. Tibial plateau fracture, right Pain Ratin Pain Location: NA Pain Goal: Remain pain free Pain Plan: NA Tomorrow's Labs & Rationales: none Bev Foster MD 09/16/17 1106: Attending MD Review Statement Attending Statement Attending MD Statement: examined this patient, discuss w/resident/PA/CABLE MOCK UP ASSEMBLER, agreed w/resident/PA/CABLE MOCK UP ASSEMBLER, discussed with family, reviewed EMR data (avail), discussed with nursing, discussed with case mgmt, reviewed images, amended to note Attending Assessment/Plan: Patient seen and examined, overall doing well. Had a bowel movement yesterday. Pain is under reasonable control. Vital Signs Date Time Temp Pulse Resp B/P B/P Pulse O2 O2 Flow FiO2 Mean Ox Delivery Rate 09/16 0913 Room Air 09/16 0619 98.9 72 20 104/60 97 Room Air 09/15 2216 98.6 69 18 140/60 96 Room Air 09/15 1436 Room Air 09/15 1345 98.3 62 16 142/62 97 Room Air on exam; aox3, nad. cv; s1,s2, rrr resp; clear abd; soft, nt, bs+ ext; rle is in immobilizer. skin: + morphea scleroderma changes on chest and abd. Laboratory Tests 09/16 0706 Hematology CBC w Diff NO MAN DIFF REQ WBC (4.8 - 10.8 /CUMM) 6.0 RBC (4.20 - 5.40 /CUMM) 4.24 Hgb (12.0 - 16.0 G/DL) 11.8 L Hct (37 - 47 %) 34.6 L MCV (81.0 - 99.0 FL) 81.6 MCH (27.0 - 31.0 PG) 27.8 MCHC (33.0 - 37.0 G/DL) 34.0 RDW (11.5 - 14.5 %) 13.0 Plt Count (130 - 400 /CUMM) 187 MPV (7.4 - 10.4 FL) 8.6 Gran % (42.2 - 75.2 %) 77.8 H Lymphocytes % (20.5 - 51.1 %) 14.0 L Monocytes % (1.7 - 9.3 %) 6.9 Eosinophils % (0 - 5 %) 1.0 Basophils % (0.0 - 2.0 %) 0.3 Absolute Granulocytes (1.4 - 6.5 /CUMM) 4.7 Absolute Lymphocytes (1.2 - 3.4 /CUMM) 0.8 L Absolute Monocytes (0.10 - 0.60 /CUMM) 0.4 Absolute Eosinophils (0.0 - 0.7 /CUMM) 0.1 Absolute Basophils (0.0 - 0.2 /CUMM) 0 A/P; 71 y/o F with pmh sig for AFIB, morphea scleroderma, hyperlipidemia, asthma and hypothyroidism admitted with a fall and found to have right sided Impacted lateral tibial plateau fracture and a hairline fracture of the fibular head extending along the tibiofibular joint. Large lipohemarthrosis. S/P Open reduction internal fixation right lateral tibial plateau fracture with allograft cancellous bone grafting POD #2 today. Patient overall progressing well. H&H remained stable. She did have a bowel movement yesterday. Her pain control is adequate. PT recommended rehabilitation. Once there is a bed available she can likely be discharged to rehabilitation. We'll continue her home medications and she'll be continued on Tylenol and oxycodone for pain management. Orthopedics recommended twice a day aspirin for DVT prophylaxis. Discussed with patient's son at bedside.
[2017-09-16] MEDS ORDERED: ASPIRIN325 M2 PO (07:39)
[2017-09-16] MEDS ORDERED: TYLENOL325 M1 PO (07:39)
[2017-09-16] MEDS ORDERED: OMEPRAZOLE20 M2 PO (07:39)
[2017-09-16] MEDS ORDERED: OXYCODONE HCL10 M2 PO (07:41)
--- NOTE | 2017-09-16 07:45 | Patient Discharge Instructions ---
Discharge Instructions General Discharge Information You were seen/treated for: Lateral tibial fracture You had these procedures: Open reduction internal fixation 09/14/17 Watch for these problems: Bleeding, excessive bruising, shortness of breath, chest pain or confusion Special Instructions: Follow up with surgery-Dr. Miller 1 week of discharge Take your ASA twice daily for 6 weeks postop Diet Continue normal diet: Yes Activity Activity Limited to: No weight bearing Acute Coronary Syndrome Inclusion Criteria At DC or during hospital stay patient has or had the following: ACS DIAGNOSIS No Discharge Core Measures Meds if any: Prescribed or Continued at Discharge Meds if any: NOT Prescribed or Continued at Discharge Congestive Heart Failure Inclusion Criteria At DC or during hospital stay patient has or had the following: CHF DIAGNOSIS No Discharge Core Measures Meds if any: Prescribed or Continued at Discharge Meds if any: NOT Prescribed or Continued at Discharge Cerebrovascular accident Inclusion Criteria At DC or during hospital stay patient has or had the following: CVA/TIA Diagnosis No Discharge Core Measures Meds if any: Prescribed or Continued at Discharge Meds if any: NOT Prescribed or Continued at Discharge Venous thromboembolism Inclusion Criteria VTE Diagnosis No VTE Type NONE VTE Confirmed by (Test) NONE Discharge Core Measures - Per Current guidelines, there needs to be overlap - treatment for the first 5 days of Warfarin therapy. - If discharged on Warfarin prior to 5 days of - overlap therapy, the patient will need to be - assessed for post discharge needs including - *Post discharge parental anticoagulation - *Warfarin and/or parental anticoagulation education - *Follow up date to check INR post discharge At least 5 days overlap therapy as Inpatient No Meds if any: Prescribed or Continued at Discharge Note: Overlap Therapy is Warfarin and Anticoagulant Meds if any: NOT Prescribed or Continued at Discharge
[2017-09-16 09:22] LABS: ABSOLUTE BASOPHIL COUNT 0 /CUMM (0.0-0.2); ABSOLUTE EOSINOPHIL COUNT 0.1 /CUMM (0.0-0.7); ABSOLUTE GRANULOCYTE CT 4.7 /CUMM (1.4-6.5); ABSOLUTE LYMPH COUNT 0.8 /CUMM (1.2-3.4); ABSOLUTE MONOCYTE COUNT 0.4 /CUMM (0.10-0.60); BASOPHIL % 0.3 % (0.0-2.0); GRANULOCYTE % 77.8 % (42.2-75.2); HEMATOCRIT 34.6 % (37-47); MEAN CORPUSCULAR HGB 27.8 PG (27.0-31.0); MEAN CORPUSCULAR VOLUME 81.6 FL (81.0-99.0); MEAN PLATELET VOLUME 8.6 FL (7.4-10.4); PLATELET COUNT 187 /CUMM (130-400); RED BLOOD CELL CT 4.24 /CUMM (4.20-5.40)
[2017-09-16] MEDS ORDERED: MIRALAX119 GM PO (10:04)
[2017-09-16 14:36] VITALS: BP 110/60
[2017-09-16 22:29] VITALS: BP 136/70
[2017-09-17 06:00] VITALS: BP 122/72
--- NOTE | 2017-09-17 07:49 | PN- Housestaff ---
See Addendum Subjective Follow-up For: Lateral tibial plateau fracture s/p ORIF POD 3 Subjective: Patient offers no complaints and anticipates to go home today. Patient requests crutches. Son at bedside. Review of Systems Constitutional: Reports: see HPI. Objective Last 24 Hrs of Vital Signs/I&O Vital Signs Date Time Temp Pulse Resp B/P B/P Pulse O2 O2 Flow FiO2 Mean Ox Delivery Rate 09/17 06 98.5 60 16 122/72 97 Room Air 09/16 2229 98.7 66 20 136/70 97 Room Air 09/16 1600 Room Air 09/16 1436 98.4 73 20 110/60 98 Room Air 09/16 0913 Room Air Intake & Output 09/17 1600 09/17 0800 09/17 0000 Intake Total 250 600 Output Total 400 700 Balance -150 -100 Intake, IV 10 Intake, Oral 240 600 Output, Urine 400 700 Physical Exam General Appearance: Alert, Oriented X3, Cooperative, No Acute Distress Cardiovascular: Regular Rate, Normal S1, Normal S2 Lungs: Clear to Auscultation, Normal Air Movement Abdomen: Normal Bowel Sounds, Soft, No Tenderness Current Medications: Current Medications Sig/Gila Start time Last Medication Dose Route Stop Time Status Admin Acetaminophen 650 MG Q4P PRN 09/14 161 AC 09/14 PO 2016 Albuterol Sulfate 2 PUF Q4-PRN PRN 09/14 214 AC INH Aspirin 325 MG BID 09/14 2099 AC 09/17 PO 0837 Bisacodyl 5 MG DAILY 09/15 09 AC 09/17 PO 0837 Clobetasol Propionate 1 IVÁN DAILY 09/15 09 AC 09/17 TOP 0830 Levothyroxine Sodium 0.125 MG DAILY AC 09/15 0700 AC 09/17 PO 0509 Montelukast Sodium 10 MG AT BEDTIME 09/14 2100 AC 09/16 PO 2114 Morphine Sulfate 1 MG Q6P PRN 09/14 161 AC IV Mycophenolate Mofetil 500 MG 1100,1600,2300 09/15 1600 AC 09/16 PO 2114 Omeprazole 40 MG DAILY AC 09/15 0747 AC 09/17 PO 0509 Oxycodone HCl 10 MG Q6P PRN 09/14 2030 AC 09/15 PO 0649 Polyethylene Glycol 17 GM DAILY 09/15 09 AC 09/17 PO 0838 Assessment/Plan Assessment: Ms. Dobbins is a Belarusian speaking 68-year-old woman with past medical history of AFIB not on anticoagulation or rate control, morphea scleroderma, hyperlipidemia, asthma and hypothyroidism who presents to the ED with right knee pain after a fall. Problem list: #Mechanical fall #Lateral tibial plateau fracture s/p ORIF POD 3 Plan: Continue PT Patient nonweightbearing of the right lower extremity Continue ASA 325 mg BID x 6 weeks as per Ortho Continue levothyroxine, mycophenolate, Montelukast, clobetasol Continue pain meds Acetaminophen, morphine, acetaminophen/oxycodone IV Protonix daily Diet: Heart healthy DVT ppx: ASA Code: Full Dispo: Home PT Problem List: 1. Tibial plateau fracture, right Pain Ratin Pain Location: NA Pain Goal: Remain pain free Pain Plan: NA Tomorrow's Labs & Rationales: none
[2017-09-17] MEDS ORDERED: TYLENOL325 M1 PO (09:45)
[2017-09-17] MEDS ORDERED: MIRALAX119 GM PO (09:45)
[2017-09-17] MEDS ORDERED: ASPIRIN325 M2 PO (09:45)
[2017-09-17] MEDS ORDERED: OMEPRAZOLE20 M2 PO (09:45)
[2017-09-17] MEDS ORDERED: OXYCODONE HCL10 M2 PO (09:45)
== END 2017-09-17 12:58 | disposition home health service (06) | DRG 494 ==
LOC: ERH 13:15 → 2NA 16:56 → ERHI 16:56 → ENRESERV 18:08 → ENTRNSPT 19:02 → EDTRNSPTSTS 19:07 → EDTRNSPT 19:07 → 2NA 19:21 → CMPTRNSPT 19:48 → 2NA 09-12 19:05 → ENTRNSPT 09-14 15:00 → EDTRNSPTSTS 09-14 15:07 → EDTRNSPT 09-14 15:07 → CMPTRNSPT 09-14 15:21 → ENPENDDIS 09-17 09:54 → ENTRNSPT 09-17 12:47 → EDTRNSPT 09-17 12:53 → EDTRNSPTSTS 09-17 12:53 → 2NA 09-17 12:58 → CMPTRNSPT 09-17 13:13
PROVIDERS: Emergency Medicine; Internal Medicine Adolescent Medicine; Student in an Organized Health Care Education/Training Program
PROC: 0QSG04Z Reposition Right Tibia with Internal Fixation Device, Open Approach (ICD-10-PCS; principal; 2017-09-14)
DX: S82.141A Displaced bicondylar fracture of right tibia, initial encounter for closed fracture (principal); I48.2 Chronic atrial fibrillation; W17.89XA Other fall from one level to another, initial encounter; L94.0 Localized scleroderma [morphea]; E78.5 Hyperlipidemia, unspecified; J45.909 Unspecified asthma, uncomplicated
CPT/HCPCS: 2NAP; 2NASP; 36592; 71045; 73502-RT; 73562-RT; 81003; 82436; 93005; 93010; 97110-GO; 97116-GO; 97161-GP; 97530-GO; C1713; J0131; J0690; J1650; J3490; J7517